=== PATIENT | female | born 1945 | race Caucasian/White ===

== ENCOUNTER → 2016-07-06 | Outpatient (CLI) | payer BC ==
[~2016-07-06] MED LIST: ALL180 PO; AMR2 PO; ARTIOIN OP; LYR50 PO; PLMIN200 INH; POTA10CA28 PO; SIMV20TA2 PO; SNQ50 PO; SYN50 PO
[2016-07-06 12:08] LABS: BASO ABS # 0.07 K/uL (0-0.2); COMPLETE YES; EOS % 2.8 %; HEMATOCRIT 40.9 % (37-47); IG% 0.1 %; LYMPH % 42.5 %; LYMPH ABS # 3.05 K/uL (1.2-3.4); MEAN CELL VOLUME 91.9 fL (80-100); MEAN CORPUSCULAR HEMOGLOBIN 31.5 pg (25-34); MEAN CORPUSCULAR HGB CONC 34.2 g/dl (32-36); MEAN PLATELET VOLUME 12.1 fL (7.4-10.4); MONO % 6.6 %; PLATELET COUNT 170 K/uL (130-400); RED BLOOD COUNT 4.45 M/uL (4.2-5.4); WHITE BLOOD COUNT 7.17 K/uL (4.8-10.8)
[2016-07-06 12:19] LABS: ALT/SGPT 38 U/L (12-78); AST/SGOT 18 U/L (15-37); BLOOD UREA NITROGEN 22 mg/dl (7-18); BUN/CREATININE RATIO 20.4 (10-20); CALCIUM 8.6 mg/dl (8.5-10.1); CARBON DIOXIDE 28 mmol/L (21-32); CHLORIDE 100 mmol/L (98-107); CHOLESTEROL 141 mg/dl (0-200); GLUCOSE 137 mg/dl (70-99); POTASSIUM 3.2 mmol/L (3.5-5.1); SODIUM 137 mmol/L (136-145); URIC ACID 3.9 mg/dl (2.6-7.2)
[2016-07-06 12:29] LABS: ALKALINE PHOSPHATASE 60 U/L (45-117); CHOLESTEROL/HDL RATIO 2.8; HDL CHOLESTEROL 50 mg/dl; LDL CHOLESTEROL CALCULATED 55 mg/dl; TRIGLYCERIDES 179 mg/dl (0-150); VERY LOW DENSITY LIPOPROT CALC 36 mg/dl
[2016-07-06 12:33] LABS: ESTIMATED AVERAGE GLUCOSE 157 mg/dl; HA1C FLAG Normal (Normal)
== END | disposition home or self-care (01) ==
LOC: C.LAB1850 10:16
PROVIDERS: ATTEND Internal Medicine Pulmonary Disease
DX: E11.9 Type 2 diabetes mellitus without complications (principal); M10.9 Gout, unspecified; E03.9 Hypothyroidism, unspecified; I10 Essential (primary) hypertension

== ENCOUNTER → 2016-07-09 | Outpatient (CLI) | payer BC ==
--- NOTE | 2016-07-09 16:38 | MAMMOGRAPHY REPORT ---
BILATERAL DIGITAL SCREENING MAMMOGRAM WITH CAD: 07/09/2016 CLINICAL HISTORY: Routine screening. Patient has no complaints. TECHNIQUE: Bilateral CC and MLO views were obtained. Current study was also evaluated with a Comput er Aided Detection (CAD) system. COMPARISON: Comparison is made to exams dated: 07/06/2015 mammogram, 06/29/2013 mammogram, 06/26/2012 m ammogram, 06/23/2010 mammogram, and 06/22/2009 mammogram - [facility]. BREAST COMPOSITION: The tissue of both breasts is almost entirely fatty. FINDINGS: There are a few stable benign-appearing calcifications in the breasts. No suspicious mass , architectural distortion or cluster of suspicious microcalcifications is seen. IMPRESSION: ACR BI-RADS CATEGORY 1: NEGATIVE There is no mammographic evidence of malignancy. A 1 year screening mammogram is recommended. The p atient will receive written notification of the results. Approximately 10% of breast cancers are not detected with mammography. A negative mammographic repor t should not delay biopsy if a clinically suggestive mass is present. Dia Azevedo M.D. ay/:07/09/2016 16:07:37 Licensed Practical Nurse Instructor: Cecy Hernandez [facility] letter sent: Normal 1/2 BI-RADS Code: ACR BI-RADS Category 1: Negative
== END | disposition home or self-care (01) ==
LOC: C.MAMM 13:51
PROVIDERS: ATTEND Internal Medicine Pulmonary Disease
DX: Z12.31 Encounter for screening mammogram for malignant neoplasm of breast (principal)

== ENCOUNTER → 2017-01-08 | Outpatient (CLI) | payer BC ==
[2017-01-08 10:48] LABS: ALT/SGPT 33 U/L (12-78); BLOOD UREA NITROGEN 22 mg/dl (7-18); BUN/CREATININE RATIO 19.6 (10-20); CALCIUM 9.5 mg/dl (8.5-10.1); CARBON DIOXIDE 26 mmol/L (21-32); CHLORIDE 100 mmol/L (98-107); CHOLESTEROL 157 mg/dl (0-200); GLUCOSE 116 mg/dl (70-99); POTASSIUM 3.3 mmol/L (3.5-5.1); SODIUM 136 mmol/L (136-145); URIC ACID 4.2 mg/dl (2.6-7.2)
[2017-01-08 10:51] LABS: ALKALINE PHOSPHATASE 67 U/L (45-117); AST/SGOT 19 U/L (15-37); CHOLESTEROL/HDL RATIO 3.2; HDL CHOLESTEROL 49 mg/dl; LDL CHOLESTEROL CALCULATED 63 mg/dl; TRIGLYCERIDES 225 mg/dl (0-150); VERY LOW DENSITY LIPOPROT CALC 45 mg/dl
[2017-01-08 12:16] LABS: ESTIMATED AVERAGE GLUCOSE 140 mg/dl; HA1C FLAG Normal (Normal)
== END | disposition home or self-care (01) ==
LOC: C.LAB1850 09:30
PROVIDERS: ATTEND Internal Medicine Pulmonary Disease
DX: J45.909 Unspecified asthma, uncomplicated (principal); E11.9 Type 2 diabetes mellitus without complications; E78.5 Hyperlipidemia, unspecified; E03.9 Hypothyroidism, unspecified; I10 Essential (primary) hypertension

== ENCOUNTER → 2017-07-08 | Outpatient (CLI) | payer BC ==
[2017-07-08 12:11] LABS: BASO % 0.5 %; BASO ABS # 0.04 K/uL (0-0.2); EOS % 3.4 %; EOS ABS # 0.26 K/uL (0-0.5); HEMATOCRIT 46.8 % (37-47); HEMOGLOBIN 15.6 g/dL (12.0-16.0); IG# 0.02 K/uL (0.00-0.02); LYMPH % 42.2 %; LYMPH ABS # 3.23 K/uL (1.2-3.4); MEAN CELL VOLUME 93.4 fL (80-100); MEAN CORPUSCULAR HEMOGLOBIN 31.1 pg (25-34); MEAN CORPUSCULAR HGB CONC 33.3 g/dl (32-36); MEAN PLATELET VOLUME 12.1 fL (7.4-10.4); MONO % 7.3 %; MONO ABS # 0.56 K/uL (0.11-0.59); NEUT % 46.3 %; NEUT ABS # 3.55 K/uL (1.4-6.5); PLATELET COUNT 168 K/uL (130-400); RED CELL DISTRIBUTION WIDTH CV 13.9 % (11.5-14.5); RED CELL DISTRIBUTION WIDTH SD 47.3 fL (36.4-46.3); WHITE BLOOD COUNT 7.66 K/uL (4.8-10.8)
[2017-07-08 12:58] LABS: HEMOGLOBIN A1C 6.8 % (4.5-5.6)
[2017-07-08 12:59] LABS: ALBUMIN 3.6 gm/dl (3.4-5.0); ALT/SGPT 36 U/L (12-78); BLOOD UREA NITROGEN 23 mg/dl (7-18); CALCIUM 9.1 mg/dl (8.5-10.1); CARBON DIOXIDE 26 mmol/L (21-32); CHOLESTEROL 160 mg/dl (0-200); CREATININE 1.09 mg/dl (0.60-1.20); GLUCOSE 106 mg/dl (70-99); POTASSIUM 3.3 mmol/L (3.5-5.1); SODIUM 135 mmol/L (136-145)
[2017-07-08 13:23] LABS: ALKALINE PHOSPHATASE 69 U/L (45-117); AST/SGOT 20 U/L (15-37); LDL CHOLESTEROL CALCULATED 63 mg/dl; TOTAL PROTEIN 7.4 gm/dl (6.4-8.2)
[2017-07-08 15:26] LABS: CREATININE RANDOM URINE 18.6 mg/dl
== END | disposition home or self-care (01) ==
LOC: C.LAB1850 10:14
PROVIDERS: ATTEND Internal Medicine Pulmonary Disease
DX: E11.9 Type 2 diabetes mellitus without complications (principal); E78.5 Hyperlipidemia, unspecified; E03.9 Hypothyroidism, unspecified; I10 Essential (primary) hypertension

== ENCOUNTER → 2017-07-11 | Outpatient (CLI) | payer BC ==
--- NOTE | 2017-07-15 12:41 | MAMMOGRAPHY REPORT ---
BILATERAL DIGITAL SCREENING MAMMOGRAM TOMOSYNTHESIS WITH CAD: 07/11/2017 CLINICAL HISTORY: Routine screening. Patient has no complaints. TECHNIQUE: Breast tomosynthesis in addition to standard 2D mammography was performed. Current study was also evaluated with a Computer Aided Detection (CAD) system. COMPARISON: Comparison is made to exams dated: 07/09/2016 mammogram, 07/06/2015 mammogram, 06/30/2014 m ammogram, 06/29/2013 mammogram, 06/26/2012 mammogram, and 06/25/2011 mammogram - [facility]. BREAST COMPOSITION: The tissue of both breasts is almost entirely fatty. FINDINGS: No suspicious masses, calcifications, or areas of architectural distortion are noted in ei ther breast. There has been no significant interval change compared to prior exams. IMPRESSION: ACR BI-RADS CATEGORY 1: NEGATIVE There is no mammographic evidence of malignancy. A 1 year screening mammogram is recommended. The pa tient will receive written notification of the results. Approximately 10% of breast cancers are not detected with mammography. A negative mammographic report should not delay biopsy if a clinically suggestive mass is present. Nellie Thakur M.D. /:07/11/2017 16:04:32 [employer] Assistant Teacher: Cecy CHIU(Endy)(M), [facility] letter sent: Normal 1/2 BI-RADS Code: ACR BI-RADS Category 1: Negative
== END | disposition home or self-care (01) ==
LOC: C.MAMM 13:14
PROVIDERS: ATTEND Internal Medicine Pulmonary Disease
DX: Z12.31 Encounter for screening mammogram for malignant neoplasm of breast (principal)

== ENCOUNTER 2023-11-04 08:22 | Observation (INO) ==
--- NOTE | 2023-09-19 11:29 | PAT Medication Instructions ---
Medication Instructions Date of Service September 19, 2023 Home Medications Medication Instructions Recorded metformin 500 mg tablet,extended 1,000 mg (2 x 500 mg) PO BID #360 06/12/22 release 24 hr tabs pen needle, diabetic 32 gauge x #100 ea 09/05/22" (Sure Comfort Pen Needle) simvastatin 20 mg tablet 20 mg PO HS #90 tabs 10/09/22 blood sugar diagnostic (OneTouch #300 ea 10/29/22 Ultra Test strips) canagliflozin 100 mg tablet 100 mg PO QAM #90 tabs 11/12/22 (Invokana) potassium chloride 10 mEq 10 meq PO BID #180 caps 11/12/22 capsule,extended release albuterol sulfate 90 mcg/actuation 2 puff inhalation QID PRN 01/11/23 aerosol inhaler (Ventolin HFA) Shortness Of Breath Or Wheezing #3 Inhalers insulin glargine 100 unit/mL (3 21 unit (0.21 mL) subcut HS #30 mL 01/22/23 mL) subcutaneous pen (Lantus Solostar U-100 Insulin) pregabalin 100 mg capsule 100 mg PO BID #180 caps 02/27/23 lancets 30 gauge #300 ea 03/20/23 doxepin 50 mg capsule 50 mg PO HS #90 caps 05/22/23 fexofenadine 180 mg tablet (Lorrie Allergy) 180 mg PO HS omega 1-zme-xqa-fish oil 1,000 mg (120 mg-180 mg) capsule (Fish Oil) 2,000 mg PO HS hydrocortisone 1 % topical cream (Anti-Itch (hydrocortisone)) 1 appln topical BID PRN Rash metronidazole 0.75 % topical cream 1 appln topical BID PRN ROSACEA cinnamon bark 500 mg capsule 1,000 mg PO BID metformin 500 mg tablet,extended release 24 hr 1,000 mg (2 x 500 mg) PO BID acetaminophen 650 mg tablet,extended release 650 mg PO UD PRN Pain budesonide 180 mcg/actuation breath activated powder inhaler (Pulmicort Flexhaler) 2 inh inhalation BID PRN Shortness Of Breath Or Wheezing clotrimazole-betamethasone 1 %-0.05 % topical cream 1 applic topical BID PRN Skin Irritation cyanocobalamin (vitamin B-12) 1,000 mcg tablet (Vitamin B-12) 1,000 mcg PO QAM bqvtneev-cofi-ixpc 8 mg-folic 400 mcg-K 50 mcg-lutein 300 mcg tablet (Centrum Silver Women) 1 tab PO QAM olopatadine 0.2 % eye drops 1 drp ophthalmic (eye) DAILY PRN Eye Irritation simvastatin 20 mg tablet 20 mg PO HS canagliflozin 100 mg tablet (Invokana) 100 mg PO QAM potassium chloride 10 mEq capsule,extended release 10 meq PO BID albuterol sulfate 90 mcg/actuation aerosol inhaler (Ventolin HFA) 2 puff inhalation QID PRN Shortness Of Breath Or Wheezing insulin glargine 100 unit/mL (3 mL) subcutaneous pen (Lantus Solostar U-100 Insulin) 21 unit (0.21 mL) subcut HS pregabalin 100 mg capsule 100 mg PO BID doxepin 50 mg capsule 50 mg PO HS allopurinol 300 mg tablet 300 mg PO QAM levothyroxine 88 mcg tablet 88 mcg PO QAM triamterene 75 mg-hydrochlorothiazide 50 mg tablet 1 tab PO QAM Continue as directed olopatadine 0.2 % eye drops 1 drp ophthalmic (eye) DAILY PRN Eye Irritation (if needed) STOP taking 2 weeks before surgery omega 7-szo-cdo-fish oil 1,000 mg (120 mg-180 mg) capsule (Fish Oil) 2,000 mg PO HS cinnamon bark 500 mg capsule 1,000 mg PO BID STOP taking 3 days before surgery canagliflozin 100 mg tablet (Invokana) 100 mg PO QAM STOP taking 24 hours before surgery hydrocortisone 1 % topical cream (Anti-Itch (hydrocortisone)) 1 appln topical BID PRN Rash metronidazole 0.75 % topical cream 1 appln topical BID PRN ROSACEA clotrimazole-betamethasone 1 %-0.05 % topical cream 1 applic topical BID PRN Skin Irritation DO NOT take the morning of surgery metformin 500 mg tablet,extended release 24 hr 1,000 mg (2 x 500 mg) PO BID cyanocobalamin (vitamin B-12) 1,000 mcg tablet (Vitamin B-12) 1,000 mcg PO QAM [id number] 8 mg-folic 400 mcg-K 50 mcg-lutein 300 mcg tablet (Centrum Silver Women) 1 tab PO QAM potassium chloride 10 mEq capsule,extended release 10 meq PO BID triamterene 75 mg-hydrochlorothiazide 50 mg tablet 1 tab PO QAM Take morning of surgery With a small sip of water, OTHERWISE NOTHING TO EAT OR DRINK AFTER MIDNIGHT: acetaminophen 650 mg tablet,extended release 650 mg PO UD PRN Pain (if needed) budesonide 180 mcg/actuation breath activated powder inhaler (Pulmicort Flexhaler) 2 inh inhalation BID PRN Shortness Of Breath Or Wheezing (if needed) albuterol sulfate 90 mcg/actuation aerosol inhaler (Ventolin HFA) 2 puff inhalation QID PRN Shortness Of Breath Or Wheezing (use if needed; please bring with you to hospital day of surgery if possible) pregabalin 100 mg capsule 100 mg PO BID allopurinol 300 mg tablet 300 mg PO QAM levothyroxine 88 mcg tablet 88 mcg PO QAM Take evening before surgery fexofenadine 180 mg tablet (Lorrie Allergy) 180 mg PO HS metformin 500 mg tablet,extended release 24 hr 1,000 mg (2 x 500 mg) PO BID acetaminophen 650 mg tablet,extended release 650 mg PO UD PRN Pain (if needed) budesonide 180 mcg/actuation breath activated powder inhaler (Pulmicort Flexhaler) 2 inh inhalation BID PRN Shortness Of Breath Or Wheezing (if needed) simvastatin 20 mg tablet 20 mg PO HS potassium chloride 10 mEq capsule,extended release 10 meq PO BID albuterol sulfate 90 mcg/actuation aerosol inhaler (Ventolin HFA) 2 puff inhalation QID PRN Shortness Of Breath Or Wheezing (if needed) insulin glargine 100 unit/mL (3 mL) subcutaneous pen (Lantus Solostar U-100 Insulin) 21 unit (0.21 mL) subcut HS pregabalin 100 mg capsule 100 mg PO BID doxepin 50 mg capsule 50 mg PO HS Other Notes If you have any questions please call us at [phone] or [phone] or [phone] or [phone]
--- NOTE | 2023-10-07 11:39 | Anesthesiology Consultation ---
Date of Service October 07, 2023 Assessment & Plan (1) Encounter for pre-operative examination: Chart Review Chart Review: Acceptable Risk for Surgery and Patient seen in Pre Admission Testing - Check BSG AM DOS - Patient is NOT an ideal OPJ candidate (currently 23 hour obs) Per PAT appt on 10/07/23, no recent illness/disease exposures, illness related symptoms, or recent illness/disease positive tests. Will leave to surgeon's discretion if preop Covid testing needed History Surgery Operation Date: 11/04/23 08:40 Proposed Procedures p Right Total Shoulder Arthroplasty [place] - Josse Dangelo, Height/Weight Height: 5 ft 1.25 in Weight: 94.7 kg Allergies Allergy/AdvReac Type Severity Reaction Status Date / Time NSAIDS (Non-Steroidal Allergy Severe Hives Verified 09/19/23 10:45 Anti-Inflamma brimonidine Allergy Intermediate RED ITCHY Verified 09/19/23 10:45 EYES CRUSTY EYES Penicillins Allergy Intermediate HIVES Verified 09/19/23 10:45 aspirin Allergy Unknown Hives Verified 10/07/23 11:46 doxycycline Allergy Unknown Not Verified 10/07/23 11:46 effective- caused increased redness to wound bacitracin Allergy Itching Verified 09/19/23 10:45 [From Neosporin ([id number])] neomycin Allergy Itching Verified 09/19/23 10:45 [From Neosporin ([id number])] nickel Allergy rash, Verified 09/19/23 10:45 itching polymyxin B Allergy Itching Verified 09/19/23 10:45 [From Neosporin ([id number])] Medications Home Medications Medication Instructions Recorded Confirmed Last Taken fexofenadine 180 mg tablet 180 mg PO HS 02/07/18 09/19/23 08/23/22 (Lorrie Allergy) omega 0-ctx-ses-fish oil 1,000 mg 2,000 mg PO HS 02/07/18 09/19/23 08/23/22 (120 mg-180 mg) capsule (Fish Oil) hydrocortisone 1 % topical cream 1 appln topical BID PRN Rash 02/25/19 09/19/23 Unknown (Anti-Itch (hydrocortisone)) metronidazole 0.75 % topical cream 1 appln topical BID PRN ROSACEA 02/25/19 09/19/23 02/05/21 cholecalciferol (vitamin D3) 50 50 mcg PO QAM 08/30/20 09/19/23 08/24/22 mcg (2,000 unit) capsule cinnamon bark 500 mg capsule 1,000 mg PO BID 02/05/21 09/19/23 08/24/22 12:00 metformin 500 mg tablet,extended 1,000 mg (2 x 500 mg) PO BID #360 06/12/22 09/19/23 08/24/22 12:00 release 24 hr tabs acetaminophen 650 mg 650 mg PO UD PRN Pain 08/24/22 09/19/23 Unknown tablet,extended release budesonide 180 mcg/actuation 2 inh inhalation BID PRN Shortness 08/24/22 09/19/23 Unknown breath activated powder inhaler Of Breath Or Wheezing (Pulmicort Flexhaler) clotrimazole-betamethasone 1 1 applic topical BID PRN Skin 08/24/22 09/19/23 Unknown %-0.05 % topical cream Irritation cyanocobalamin (vitamin B-12) 1,000 mcg PO QAM 08/24/22 09/19/23 08/24/22 1,000 mcg tablet (Vitamin B-12) fvzcziqr-uiqg-swwl 8 mg-folic 400 1 tab PO QAM 08/24/22 09/19/23 08/24/22 mcg-K 50 mcg-lutein 300 mcg tablet (Centrum Silver Women) olopatadine 0.2 % eye drops 1 drp ophthalmic (eye) DAILY PRN 08/24/22 09/19/23 08/24/22 Eye Irritation simvastatin 20 mg tablet 20 mg PO HS #90 tabs 10/09/22 09/19/23 Unknown blood sugar diagnostic (OneTouch #300 ea 10/29/22 08/08/23 Unknown Ultra Test strips) canagliflozin 100 mg tablet 100 mg PO QAM #90 tabs 11/12/22 09/19/23 Unknown (Invokana) potassium chloride 10 mEq 10 meq PO BID #180 caps 11/12/22 09/19/23 Unknown capsule,extended release albuterol sulfate 90 mcg/actuation 2 puff inhalation QID PRN 01/11/23 09/19/23 Unknown aerosol inhaler (Ventolin HFA) Shortness Of Breath Or Wheezing #3 Inhalers insulin glargine 100 unit/mL (3 unit (0.21 mL) subcut HS #30 mL 01/22/23 09/19/23 Unknown mL) subcutaneous pen (Lantus Solostar U-100 Insulin) lancets 30 gauge #300 ea 03/20/23 08/08/23 Unknown doxepin 50 mg capsule 50 mg PO HS #90 caps 05/22/23 09/19/23 Unknown allopurinol 300 mg tablet 300 mg PO QAM 09/19/23 09/19/23 Unknown levothyroxine 88 mcg tablet 88 mcg PO QAM 09/19/23 09/19/23 Unknown pen needle, diabetic 32 gauge x #100 ea 09/20/23 Unknown 32" (Sure Comfort Pen Needle) pregabalin 100 mg capsule 100 mg PO BID #200 caps 09/20/23 Unknown triamterene 75 1 tab PO QAM #100 tabs 09/20/23 Unknown mg-hydrochlorothiazide 50 mg tablet Past Medical History Medical History Asthma cough variant asthma; inh x2 prn-very rare use well controlled and stable Depression Diabetic peripheral neuropathy Dyslipidemia Glaucoma hx-no longer using drops, no mention of this recently Gout No recent issues H/O Mohs micrographic surgery for skin cancer Face Fausto's thyroiditis Hx of cancer of uterus 11/2000, s/p hysterectomy - no chemo or XRT Hx of gastroesophageal reflux (GERD) no current issues Hypertension Hypothyroidism Insomnia Low back pain with sciatica flares occasionally Nausea and vomiting after administration of anesthetic agent happened once after foot sx. Type 2 diabetes mellitus, controlled Exercise / Class Metabolic Activity III < 4 Walking/Shop/Light housework (no chest pain or SOB with flat surface ambulation ) Past Family History Family History Unknown Diabetes Allergic rhinitis Atherosclerosis Mother Cardiac disorder Father Stroke syndrome Daughter Environmental allergies Asthma Sinusitis Other No pertinent family history in first degree relatives Denies family history of Clotting disorder Past Surgical History Surgical History H/O elbow surgery History of ankle surgery History of cholecystectomy History of surgery on left wrist tendon repair History of total abdominal hysterectomy and bilateral salpingo-oophorectomy Hx of bilateral cataract extraction Hx of colonoscopy Status post osteotomy History of Osteotomy Of The Calcaneus Past Anesthesia History No Hx of Anesthesia Complications (with remote history of PONV ) and No Family Hx of Anesthesia Complications (with exception to sister- slow to wake - just gr oggy - no reintubation or ICU stay ) History of PONV No Hx of Motion Sickness and History of PONV (remote history with ankle surgery ) Social History Smoking Status: Never smoker Do You Dip or Chew Tobacco: No Hx Alcohol Use: Yes alcohol intake frequency: holidays/special occasions only Hx Substance Use: No substance use type: does not use Review of Systems - Chronic cough- stable x years Patient denies chest pain, shortness of breath, dyspnea on exertion, wheezing, palpitations. No hx of seizures, stroke, CA, apnea/snoring. No hx of blood clots or blood martinez sfusions Physical Exam Vital Signs VITALS BP 121/78 P 63 TEMP 97.5 SP02 95% RESP 16 Constitutional no acute distress ENMT Mouth: no TMJ clicking Thyromental Distance: > or= 3.5 Finger Breadths (3.5) Mallampati Class: III (smaller mouth) Crowns to side teeth and molars Top left front tooth partial (removable) Neck + short neck and + limited neck extension Respiratory normal respiratory effort; no respiratory distress Auscultation: lungs clear to auscultation bilaterally; no wheezes Cardiovascular Rate/Rhythm: regular rate and regular rhythm Heart Sounds: no murmur Vessels: no carotid bruit Musculoskeletal Spine: + pain with cervical ROM (if neck extended for long period of time ) Extremities: extremities normal to inspection Psychiatric Orientation: alert Lab Results Anesthesia Preop Results Results Anesthesia Widget: WBC 6.29 K/ul (4.8-10.8) 10/07/23 Hgb 14.1 g/dl (12.0-16.0) 10/07/23 Hct 41.9 % (37.0-47.0) 10/07/23 Plt 153 K/uL (130-400) 10/07/23 Na 138 mmol/L (136-145) 10/07/23 K 3.3 mmol/L (3.5-5.1) L 10/07/23 Cl 104 mmol/L (98-107) 10/07/23 CO2 26 mmol/L (21-32) 10/07/23 BUN 26 mg/dl (6-23) H 10/07/23 Creat 0.93 mg/dl (0.6-1.2) 10/07/23 Glucose Level 125 mg/dl (70-99(Fasting)) H 10/07/23 PT 11.1 Seconds (9.0-12.0) 10/07/23 PTT 27 Seconds (21-31) 10/07/23 INR 1.0 (0.9-1.1) 10/07/23 HA1c 7.1 % (4.5-5.6) H 10/07/23 Blood Type A Positive 10/07/23 Antibody Screen NEGATIVE 10/07/23 Testing Electrocardiogram Date: 10/07/23 SR with 1st degree AVB at 60bpm Right superior axis deviation Cannot rule out anterior infarct (cited on or before November 12, 2000) When compared to EKG from Feb 07, 2018- QRS axis shifted left per cardio Chest X-Ray Date: 05/22/23 FINDINGS: No pneumothorax. No pleural effusions. The cardiac silhouette remains top normal in size. No new focal lung consolidations to suggest a pneumonia. No evidence for pulmonary edema. No acute fractures identified. Prior cholecystectomy. A few small linear densities within the right middle lobe and lingula favor subsegmental atelectasis or scarring. This is similar to the prior study. IMPRESSION: No significant change compared to the prior study. No acute process.
--- NOTE | 2023-10-30 12:52 | History & Physical Report ---
Date of Service October 30, 2023 Assessment & Plan (1) Rotator cuff arthropathy of right shoulder: We will proceed with a right reverse shoulder arthroplasty. Postoperatively she will be placed in a sling and kept overnight in the hospital for postop medical management. She plans to use energy physical therapy upon discharge. History of Present Illness Chief Complaint: Cuff tear arthropathy of the right shoulder. Primary Care Provider: Prakash Evans MD Jade is a pleasant 77-year-old female who has been dealing with chronic increasing right shoulder pain and weakness. X-rays, MRI, and clinical examination were diagnostic for cuff tear arthropathy of the right shoulder. After failing conservative treatment, she has elected proceed with a right reve rse shoulder arthroplasty.. Allergies Allergy/AdvReac Type Severity Reaction Status Date / Time NSAIDS (Non-Steroidal Allergy Severe Hives Verified 09/19/23 10:45 Anti-Inflamma brimonidine Allergy Intermediate RED ITCHY Verified 09/19/23 10:45 EYES CRUSTY EYES Penicillins Allergy Intermediate HIVES Verified 09/19/23 10:45 aspirin Allergy Unknown Hives Verified 10/07/23 11:46 doxycycline Allergy Unknown Presumed Verified 10/11/23 13:45 allergy per patient bacitracin Allergy Itching Verified 09/19/23 10:45 [From Neosporin ([id number])] neomycin Allergy Itching Verified 09/19/23 10:45 [From Neosporin ([id number])] nickel Allergy rash, Verified 09/19/23 10:45 itching polymyxin B Allergy Itching Verified 09/19/23 10:45 [From Neosporin ([id number])] Home Medications Medication Instructions Recorded Confirmed Type fexofenadine 180 mg tablet 180 mg PO HS 02/07/18 09/19/23 History (Lorrie Allergy) omega 0-yoo-lwo-fish oil 1,000 mg 2,000 mg PO HS 02/07/18 09/19/23 History (120 mg-180 mg) capsule (Fish Oil) hydrocortisone 1 % topical cream 1 appln topical BID PRN Rash 02/25/19 09/19/23 History (Anti-Itch (hydrocortisone)) metronidazole 0.75 % topical cream 1 appln topical BID PRN ROSACEA 02/25/19 09/19/23 History cholecalciferol (vitamin D3) 50 50 mcg PO QAM 08/30/20 09/19/23 History mcg (2,000 unit) capsule cinnamon bark 500 mg capsule 1,000 mg PO BID 02/05/21 09/19/23 History metformin 500 mg tablet,extended 1,000 mg (2 x 500 mg) PO BID #360 06/12/22 09/19/23 Rx release 24 hr tabs acetaminophen 650 mg 650 mg PO UD PRN Pain 08/24/22 09/19/23 History tablet,extended release budesonide 180 mcg/actuation 2 inh inhalation BID PRN Shortness 08/24/22 09/19/23 History breath activated powder inhaler Of Breath Or Wheezing (Pulmicort Flexhaler) clotrimazole-betamethasone 1 1 applic topical BID PRN Skin 08/24/22 09/19/23 History %-0.05 % topical cream Irritation cyanocobalamin (vitamin B-12) 1,000 mcg PO QAM 08/24/22 09/19/23 History 1,000 mcg tablet (Vitamin B-12) lyuykwge-rycz-[id number] 8 mg-folic 400 1 tab PO QAM 08/24/22 09/19/23 History mcg-K 50 mcg-lutein 300 mcg tablet (Centrum Silver Women) olopatadine 0.2 % eye drops 1 drp ophthalmic (eye) DAILY PRN 08/24/22 09/19/23 History Eye Irritation blood sugar diagnostic (OneTouch #300 ea 10/29/22 08/08/23 Rx Ultra Test strips) canagliflozin 100 mg tablet 100 mg PO QAM #90 tabs 11/12/22 09/19/23 Rx (Invokana) potassium chloride 10 mEq 10 meq PO BID #180 caps 11/12/22 09/19/23 Rx capsule,extended release albuterol sulfate 90 mcg/actuation 2 puff inhalation QID PRN 01/11/23 09/19/23 Rx aerosol inhaler (Ventolin HFA) Shortness Of Breath Or Wheezing #3 Inhalers lancets 30 gauge #300 ea 03/20/23 08/08/23 Rx doxepin 50 mg capsule 50 mg PO HS #90 caps 05/22/23 09/19/23 Rx allopurinol 300 mg tablet 300 mg PO QAM 09/19/23 09/19/23 History levothyroxine 88 mcg tablet 88 mcg PO QAM 09/19/23 09/19/23 History pen needle, diabetic 32 gauge x #100 ea 09/20/23 Rx 32" (Sure Comfort Pen Needle) pregabalin 100 mg capsule 100 mg PO BID #200 caps 09/20/23 Rx triamterene 75 1 tab PO QAM #100 tabs 09/20/23 Rx mg-hydrochlorothiazide 50 mg tablet insulin glargine 100 unit/mL (3 18 unit subcut HS 10/11/23 10/11/23 History mL) subcutaneous pen (Lantus Solostar U-100 Insulin) simvastatin 20 mg tablet 20 mg PO HS #90 tabs 10/18/23 Rx Past Med/Surg History Problem List Encounter for pre-operative examination Rotator cuff arthropathy of right shoulder Rotator cuff tear, right Right shoulder pain Cough Chronic - stable Obesity Osteoarthritis of right hand Asthma Depression Diabetic peripheral neuropathy associated with type 2 diabetes mellitus Dysesthesia Dyslipidemia Esophageal reflux Glaucoma Fausto's thyroiditis Hypertension Hypothyroidism Insomnia Type 2 diabetes mellitus, with long-term current use of insulin Vitamin D deficiency Medical History Nausea and vomiting after administration of anesthetic agent happened once after foot sx. Hx of cancer of uterus 11/2000, s/p hysterectomy - no chemo or XRT Type 2 diabetes mellitus, controlled Insomnia Hypothyroidism Hypertension Fausto's thyroiditis Hx of gastroesophageal reflux (GERD) no current issues Glaucoma hx-no longer using drops, no mention of this recently Gout No recent issues Dyslipidemia Diabetic peripheral neuropathy Depression Asthma cough variant asthma; inh x2 prn-very rare use well controlled and stable H/O Mohs micrographic surgery for skin cancer Face Low back pain with sciatica flares occasionally Surgical History History of surgery on left wrist tendon repair Hx of colonoscopy Hx of bilateral cataract extraction Status post osteotomy History of Osteotomy Of The Calcaneus H/O elbow surgery History of ankle surgery History of total abdominal hysterectomy and bilateral salpingo-oophorectomy History of cholecystectomy Family History Unknown Diabetes Allergic rhinitis Atherosclerosis Mother Cardiac disorder Clotting disorder Father Stroke syndrome Daughter Environmental allergies Asthma Sinusitis Sister Clotting disorder Other No pertinent family history in first degree relatives Social History Smoking Status: Never smoker Second Hand Exposure: Yes (hx growing up); Do You Dip or Chew Tobacco: No; Hx Alcohol Use: Yes Hx Substance Use: No Preferred Language: Gambian Communication Ability: Effective Correctional Sergeant Required: No Beliefs That Will Affect Care: None marital status: Current Living Situation: Spouse and Family current occupational status: retired Feels Safe at Home: Yes Assistive Devices: Denture - Upper and Glasses Review of Systems All systems reviewed & are unremarkable except as noted in HPI & below. Physical Exam On physical examination of right shoulder, she is 80 degrees forward elevation 80 degrees of abduction. She has 3 out of 5 motion at the full can test and external rotation.. Constitutional WD/WN, vitals as above Eyes PERRL, conjunctivae normal, anicteric sclerae ENMT external ear and nose normal, oropharynx normal Neck trachea midline, no thyromegaly Respiratory normal respiratory effort Cardiovascular RRR, no murmur, no edema Gastrointestinal (Abdomen) normal bowel sounds, soft, nontender, no hepatosplenomegaly Psychiatric A+Ox3, euthymic affect Results & Data Results & Data Laboratory Results . Diagnostic Findings X-rays and MRI of the left shoulder are consistent with cuff tear arthropathy with superior migration of the humeral head and the glenoid and a chronic retracted rotator cuff tear.. PG Care Time/CCT Total # of Minutes Spent Total Time Spent with Patient: Total time spent is greater than 50% in coordination of care (as documented) at patient's floor/unit and/or counseling patient: Coding Level of Care Code None Diagnoses Rotator cuff arthropathy of right shoulder M12.811
--- NOTE | 2023-11-04 08:00 | History & Physical Bridge Note ---
Date of Service November 04, 2023 History & Physical Bridge Note I have examined the patient, reviewed the History & Physical and in the interval since the performance of the History & Physical I have noted the following changes of clinical significance: no changes noted
[~2023-11-04 08:22] MED LIST changes: -ALL180 PO; -AMR2 PO; -ARTIOIN OP; +BUPIVACAINE 0.5 % 5 MG/1 ML PF 10ML VIAL ONE; -LYR50 PO; -PLMIN200 INH; -POTA10CA28 PO; -SIMV20TA2 PO; -SNQ50 PO; -SYN50 PO
[2023-11-04] MEDS ORDERED: fentaNYL citrate PF 100 MCG/2 ML VIAL ONE (09:00)
[2023-11-04] MEDS ORDERED: MIDAZOLAM HCL 1 MG/ML 2ML VIAL ONE (09:00)
[2023-11-04] MEDS: ACETAMINOPHEN 500 MG TAB PO SCH ×2 (09:05→14:17)
[2023-11-04] MEDS: GABAPENTIN 300 MG CAP PO SCH (09:05)
[2023-11-04] MEDS: FAMOTIDINE 20 MG TAB PO SCH (09:05)
[2023-11-04] MEDS: LR 60ML/HR IV SCH (09:06)
[2023-11-04] MEDS: LR 15ML/HR IV SCH (09:06)
[2023-11-04] MEDS: dexAMETHasone**PF** 10 MG/ML VIAL IV SCH (09:08)
[2023-11-04] MEDS ORDERED: ONDANSETRON INJ 2 MG/ML 2 ML VIAL IV PRN ×2 (09:18→13:32)
[2023-11-04] MEDS ORDERED: ATROPINE SULFATE 0.1 MG/ML 10ML SYR IV PRN (09:18)
[2023-11-04] MEDS ORDERED: ePHEDrine sulfate 50 MG/ML AMP IV PRN (09:18)
[2023-11-04] MEDS: TRANEXAMIC ACID 1,000 MG **IV Pre-op IV SCH (10:09)
[2023-11-04] MEDS: ceFAZolin 2000MG 2,000 MG/15 ML SYR IV SCH ×2 (10:24→18:07)
[2023-11-04] MEDS ORDERED: ONDANSETRON INJ 2 MG/ML 2 ML VIAL ONE (10:37)
[2023-11-04] MEDS ORDERED: PROPOFOL IV EMULSION 10 MG/ML 20 ML VIAL IV ONE (10:37)
[2023-11-04] MEDS ORDERED: LIDOCAINE 2% 2 ML VIAL/AMP(20MG/ML) INFIL ONE (10:37)
[2023-11-04] MEDS: ROPIV 0.5% 246mg, Ketorolac 30mg, EPINEPHrine 0.5mg in NSS INFIL SCH (11:00)
[2023-11-04] MEDS: ORTHO JOINT ANESTHETIC ONE (11:00)
[2023-11-04] MEDS: TRANEXAMIC ACID 1,000 MG **IV Intra-op IV SCH (11:27)
--- NOTE | 2023-11-04 11:31 | Operative Report ---
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 long head of biceps tendon Post-Op Diagnosis: Cuff tear arthropathy of the right shoulder with tendinopathy long head of the biceps tendon I identified the patient and participated in the time-out.: Yes Procedure Operation Date: 11/04/23 10:20 Actual Procedures p Right Reverse Total Shoulder Arthroplasty(Right) with open biceps tenodesis as a distinct and separate procedure (modifier 59)- Josse Dangelo DO Surgeon Josse Dangelo DO Chainstitch Elastic Attacher Josse Burleson PA-C Estimated Blood Loss 150 Findings Consistent with Post-Op Diagnosis Specimens Right humeral head Description of Procedure A CPT code modifier 59: The long head of the biceps tendon was enlarged and inflamed consistent with tendinopathy. A tenodesis was opted. This was a separate and distinct portion of the procedure. For these reasons, a CPT code modifier 59 will be added to this case. Implants used: I used a Biomet Comprehensive reverse total shoulder arthroplasty system with a size 10 press fit micro humeral stem, a +6 offset humeral tray and a standard humeral bearing, a 25 mm small augment baseplate with a 6.5 mm central screw and 4 peripheral locking screws, and a size 36 mm eccentric glenosphere. Marilee arrived at [facility] for the above procedure. She was seen in the preoperative holding area and the operative extremity was identified and signed. She was given a preoperative antibiotic, TXA, and an interscalene nerve block. She was taken back to the operating room, laid on table in supine position, and put under general anesthesia. She was then put into the beachchair position. The shoulder was then prepped and draped in sterile fashion. A timeout was done and the patient and the operative extremity was properly identified. A deltopectoral approach was used. Dissection was taken down through the fascia and the deltoid was retracted laterally and the conjoined tendon was retracted medially. The anterior shoulder was exposed. The biceps groove was opened up and the biceps tendon was examined extensively. The biceps tendon demonstrated enlargement and inflammatory changes consistent with longstanding inflammation in the context of osteoarthritis and cuff arthropathy. The long head of the biceps tendon was then tenodesed to the upper border of the pectoralis major. This was a separate and distinct portion of the procedure. The subscapularis was then directly released off the lesser tuberosity with a peel technique. The inferior capsule was released and the humeral head was dislocated. A canal finding reamer was sent down the center of the humeral canal. Sequential reaming up to a size 10 reamer was done. Off that reamer, a proximal humeral resection guide was placed. The proximal humerus was resected at 135 of inclination and 25 of retroversion. Osteophytes were then removed and the glenoid was exposed. Time was spent doing a complete capsular and labral release. The glenoid guide was then placed in the inferior aspect of the glenoid. A 3.2 mm Steinmann pin was then placed into the glenoid vault at 10 of inclination. The glenoid baseplate was then reamed. The final size 25 mm small augment baseplate was then impacted in the place. A 6.5 mm central screw was then placed followed by 4 peripheral locking screws. A 36 mm eccentric glenosphere was then impacted into place. Surrounding soft tissues were then injected with 100 cc an orthopedic pain control cocktail. The proximal humerus was then exposed. Sequential broaching of the humerus up to a size 10 broach was done. Off that broach a +6 offset humeral tray was trialed. The shoulder was then reduced, brought through a full range of motion, and felt to be stable. The shoulder was then dislocated and the broach was removed. The final size 10 micro press-fit humeral stem was then impacted into place. A standard humeral bearing was then snapped onto a +6 offset humeral tray. The humeral tray was then impacted onto the humeral stem. The shoulder was once again reduced, brought through a full range of motion, and felt to be stable. The subscapularis was retracted and poor quality. The subscapularis was unable to be repaired. A dilute betadyne lavage was then done for 3 minutes. The joint was then irrigated with normal saline solution. Hemostasis was obtained. The interval was closed with 2-0 Vicryl suture. The skin was then closed with 2-0 Vicryl and haritha. A Silverlon dressing was placed and the arm was rested in a regular arm sling. She was then extubated and transferred to a hospital bed. She taken to the postanesthesia care unit in stable condition. She tolerated the procedure well. Josse Burleson PA-C, was present for the entire procedure. He was critical for patient positioning, prepping, draping, retraction exposure, wound closure and application of sterile dressing. I attest to the content of the Intraoperative Record and any orders documented therein. Any exceptions are noted below.
[2023-11-04] MEDS: fentaNYL citrate PF 100 MCG/2 ML VIAL IV PRN (12:10)
--- NOTE | 2023-11-04 12:57 | XRay Report ---
XR shoulder RT min 2V routine CLINICAL HISTORY: Post shoulder surgery COMPARISON: Right shoulder radiographs August 28, 2023. MRI of the right shoulder August 20, 2023. FINDINGS: Alignment of the reverse total right shoulder arthroplasty is anatomic. There is no peripr osthetic fracture or unexpected radiopaque foreign body. There are skin haritha. IMPRESSION: Expected findings following reverse total right shoulder arthroplasty. ACT 112: Negative or not required by law. Electronically signed by: James Staples M.D. 11/04/2023 12:56 PM
--- NOTE | 2023-11-04 13:25 | Anesthesiology Progress Note ---
Date of Service November 04, 2023 Anesthesia Post Procedure Vital Signs Vital Signs: Temp Pulse Pulse Resp BP Pulse Ox O2 Del Method 11/04/23 12:55 78 18 119/60 93 Room Air 11/04/23 12:45 80 16 119/63 93 Room Air 11/04/23 12:30 80 16 125/65 95 Room Air 11/04/23 12:15 36.4 C L 78 20 129/67 94 Room Air 11/04/23 12:05 81 21 134/70 98 Oxymask 11/04/23 11:55 85 18 131/60 99 Oxymask 11/04/23 11:49 36.7 C 84 16 138/67 96 Oxymask 11/04/23 08:56 36.6 C 77 18 192/98 H 96 Room Air O2 Flow Rate 11/04/23 12:55 11/04/23 12:45 11/04/23 12:30 11/04/23 12:15 11/04/23 12:05 4 11/04/23 11:55 12 11/04/23 11:49 12 11/04/23 08:56 Pain Intensity Right Shoulder: Pain Intensity: 5 Transfer of Care Handoff Completed per policy Notes Mental Status: alert / awake / arousable and participated in evaluation Nausea / Vomiting: adequately controlled Pain: adequately controlled Airway Patency, RR, SpO2: stable & adequate BP & HR: stable & adequate Hydration State: stable & adequate Anesthetic Complications: no major complications apparent and Pt Satisfied with anesthetic care
[2023-11-04] MEDS ORDERED: CLOTRIMAZOLE/BETAMETHASONE CR 15 GM TUBE EXT PRN (13:32)
[2023-11-04] MEDS ORDERED: METOCLOPRAMIDE HCL INJ 5 MG/ML 2 ML VIAL IV PRN (13:32)
[2023-11-04] MEDS ORDERED: ALBUTEROL HFA 8 GM INHALER INH PRN (13:32)
[2023-11-04] MEDS ORDERED: oxyCODONE HCL IR 5 MG TAB (IMMEDIATE RELEASE) PO PRN (13:32)
[2023-11-04] MEDS ORDERED: MAGNESIUM HYDROXIDE SUSP 30 ML UDC PO PRN (13:32)
[2023-11-04] MEDS ORDERED: bisacodyL 10 MG SUPP PR PRN (13:32)
[2023-11-04] MEDS ORDERED: HYDROmorphone INJ 0.5 MG/0.5 ML SYR IV PRN (13:32)
[2023-11-04] MEDS ORDERED: PHARMACY GLYCEMIC MGMT CONSULT PRN (13:32)
[2023-11-04] MEDS ORDERED: NALOXONE HCL 0.4 MG/1 ML VIAL/CARP IV PRN (13:32)
[2023-11-04] MEDS ORDERED: HYDROCORTISONE 1% CRM 30 GM TUBE EXT PRN (14:01)
[2023-11-04] MEDS ORDERED: GLUCOSE 10 TAB/TUBE PO PRN (14:45)
[2023-11-04] MEDS ORDERED: GLUCOSE 40% GEL 15 GM TUBE PO PRN (14:45)
[2023-11-04] MEDS ORDERED: GLUCAGON FOR INJ 1 MG VIAL IM PRN (14:45)
[2023-11-04] MEDS ORDERED: CARBOHYDRATES FOR HYPOGLYCEMIA PO PRN (14:45)
[2023-11-04] MEDS ORDERED: DEXTROSE 50% 50 ML SYRINGE IV PRN (14:45)
--- NOTE | 2023-11-04 15:08 | Pharmacy Report ---
Pharmacy Glycemic Short Note 2 - Date of Service November 04, 2023 - Glycemic Short BSG Results (Last 24 hours): 11/04/23 11/04/23 11/04/23 08:51 11:53 14:07 POC Glucose 149 H 171 H 176 H OUTPATIENT ANTIDIABETIC REGIMEN: * Lantus 18 units SQ qHS * Metformin 1gm PO BID * Canagliflozin 100mg PO qAM * HbA1c: 7.1% (10/07/23) ASSESSMENT: * Ms Fleming is a 77yo diabetic F, POD 0 s/p R total shoulder this morning with Dr Dangelo. * Pt received 10mg IV dexamethasone pre-op, which is likely to cause steroid- induced hyperglycemia. * SQ basal/bolus insulin regimen initiated on admission. * Pharmacy will continue to follow and adjust regimen as indicated. PLAN FOR INPATIENT GLYCEMIC CONTROL: * Hold outpatient oral diabetes medications * Basal insulin * Lantus 18 units SQ qPM * Bolus insulin * NovoLog per scale ACHS or Q6hrs while NPO * Goal Range: Low 110 mg/dL - High 140 mg/dL * Correction Factor: 30 mg/dL/unit * Nutritional / Prandial insulin per carb ratio of 1 unit per 9 grams CHO consumed
[2023-11-04] MEDS: INSULIN ASPART PER UNIT CHARGE SC SCH (17:05)
[2023-11-04] MEDS: LANTUS PER UNIT CHARGE SC SCH (17:06)
[2023-11-04] MEDS: SODIUM CHLORIDE 0.9% 1,000 ML IV SCH (17:09)
[2023-11-04] MEDS: SIMVASTATIN 20 MG TAB PO SCH (20:10)
[2023-11-04] MEDS: PREGABALIN 100 MG CAP PO SCH (20:10)
[2023-11-04] MEDS: SENNA 8.6 MG TAB PO SCH (20:10)
[2023-11-04] MEDS: DOCUSATE SODIUM 100 MG CAP PO SCH (20:10)
[2023-11-04] MEDS: FEXOFENADINE HCL 180 MG TAB PO SCH (20:11)
[2023-11-04] MEDS: DOXEPIN HCL 50 MG CAPSULE PO SCH (20:12)
[2023-11-04] MEDS: POTASSIUM CHLORIDE 10 MEQ TABCR PO SCH (20:12)
[2023-11-05] MEDS: INSULIN ASPART PER UNIT CHARGE SC SCH (01:17)
[2023-11-05] MEDS: LEVOTHYROXINE SODIUM 88 MCG TABLET PO SCH (05:20)
--- NOTE | 2023-11-05 06:55 | Orthopedic Progress Note ---
Date of Service November 05, 2023 Assessment & Plan (1) Status post reverse total replacement of right shoulder: Overall she is doing very well. She is not having much pain in the right shoulder. She will be seen by physical therapy today for ambulation and range of motion exercises. She can be discharged home later today. She will follow- up orthopedics in 2 weeks. Seven Hunt was seen and examined at bedside this morning. Overall she is doing fairly well. She is not having much pain in the right shoulder. She has been up and ambulating to the bathroom. She has no complaints.. Review of Systems All systems reviewed & are unremarkable except as noted in HPI & below. Physical Exam On physical examination of the right shoulder, the dressing is clean and dry. She has motion of her hand and her wrist. She is wearing the sling as instructed.. Results & Data Results & Data Laboratory Results . Diagnostic Findings Postoperative x-rays of the right shoulder show the prosthesis to be in anatomic alignment without any evidence of fracture complication, or loosening.. PG Care Time/CCT Total # of Minutes Spent Total Time Spent with Patient: Total time spent is greater than 50% in coordination of care (as documented) at patient's floor/unit and/or counseling patient: Coding Level of Care Code 29449 Post Operative Follow-Up Diagnoses Status post reverse total replacement of right shoulder Z96.611
--- NOTE | 2023-11-05 06:56 | Discharge Summary ---
Date of Service November 05, 2023 Admission HPI (Per Admitting) Jade is a pleasant 77-year-old female who has been dealing with chronic increasing right shoulder pain and weakness. X-rays, MRI, and clinical examination were diagnostic for cuff tear arthropathy of the right shoulder. After failing conservative treatment, she has elected proceed with a right reverse shoulder arthroplasty.. Admission Exam (Per Admitting) On physical examination of right shoulder, she is 80 degrees forward elevation 80 degrees of abduction. She has 3 out of 5 motion at the full can test and external rotation.. Principal Diagnosis Same as "Discharge Diagnosis" noted below under Discharge Instructions. Discharge Exam On physical examination of the right shoulder, the dressing is clean and dry. She has motion of her hand and her wrist. She is wearing the sling as instructed.. Discharge Data Procedures Performed Operation Date: 11/04/23 10:20 Actual Procedures p Right Reverse Total Shoulder Arthroplasty(Right) - Josse Dangelo DO Ordered Studies 11/04/23 05:00 US - OR guided needle placemen Routine Hospital Course (1) Status post reverse total replacement of right shoulder: On November 04, 2023 Marilee arrived at [facility] and underwent a right reverse shoulder replacement without complication. She had a general anesthetic and a right interscalene nerve block. Postoperatively she was placed in a sling and transferred to the general orthopedic floors. Her hospital course was uneventful. On postop day #1, her vital signs were stable and her pain was well-controlled. She was able to participate well with physical therapy doing ambulation and range of motion exercises. She was then discharged home. She will follow-up with orthopedics in 2 weeks. PG Care Time/CCT Total # of Minutes Spent Total Time Spent with Patient: Total time spent is greater than 50% in coordination of care (as documented) at patient's floor/unit and/or counseling patient: Discharge Plan Discharge Items Patient Disposition: Home - Self-Care Reason For Visit: Right Shoulder Degenerative Joint Disease Discharge Diagnosis: Right reverse shoulder replacement Activity: Per Instructions section Non-emergency contact: Surgeon Call non-emergency contact if: your wound has increased redness and your wound has increased drainage Follow-up/Referrals: Prakash Evans MD [Primary Care Provider] - Diet: Regular Addtl Attending Provider Instructions: Activity and Therapy Recommendations: * If you are using [facility] then therapy will be provided at your home until they feel you have accomplished all of your goals. * If you are using [facility] then Physical Therapy will be provided until they feel you are ready to start Outpatient Physical Therapy. * If you are not using home therapy then Outpatient Physical Therapy should start about 3-5 days from your day of surgery. Therapy will last about 8-12 weeks * Wear your sling for 3 weeks, unless otherwise instructed. You may remove your sling to shower and to dress, but otherwise, you should be in your sling at all times, including while sleeping * The shoulder replacement is very stable and you can use your hand while in the sling * You were shown a series of exercises in the hospital. Do these exercises daily including the exercises you were shown in physical therapy. Medications: * Narcotic You will likely be sent home from the hospital with a prescription for the narcotic pain medication that worked best throughout your stay. * Cefadroxil -take the antibiotic twice a day for 10 days to help prevent infection. * Other medications may be prescribed for specific circumstances. If you have any questions, please call the office at . * Resume previous home medications unless otherwise instructed Dressing Care: Leave the Silverlon dressing in place for 7 days. After 7 days you may remove the dressing. If the incision is not draining then you may leave the haritha open to air. If there is a little bit of drainage or if the haritha are getting stuck on your clothing then cover the incision with a dry dressing. The haritha will be removed at your 2 week follow-up appointment. Showering: You may shower with the Silverlon dressing in place. Do not let the shower spray hit the dressing directly. Pat the Silverlon dressing dry. If the dressing becomes wet underneath, then simply remove the dressing. Keep the incision dry until you are 7 days out from the day of surgery. After 7 days you may remove the Silverlon dressing and shower with the haritha exposed. Let soapy water run over the haritha and pat them dry. Do not scrub or soak the incision. Things To Watch For: * Drainage from the incision site that occurs more than one week after your surgery. * Increased redness at the incision site. * Fever above 102 degrees Fahrenheit. * Unusual chest pain or shortness of breath. * Call [facility] at with any of the above problems Follow-Up Visit: Follow-up with Dr. Dangelo's PA (Josse Burleson) 2-3 weeks after your day of surgery. He will remove your haritha and answer any questions. If you have any additional questions or concerns, Dr Dangelo is usually in the office at the same time and will be available An appointment was probably scheduled when you signed-up for surgery in the office. If you have any questions call More detailed instructions as well as Frequently Asked Questions were provided in a folder by our office when you signed-up for surgery. Please review these instructions when you get home. If you have any further questions or concerns, please feel free to call the office at [phone] Pending Studies at Discharge: No Stand-Alone Forms: My [facility] Medications and DC Order Prescriptions: New oxycodone 5 mg Tablet 5 mg PO Q4H PRN (Reason: pain) Qty: 30 0RF cefadroxil 500 mg capsule 500 mg PO BID 10 Days Qty: 20 0RF Continued metformin 500 mg tablet extended release 24 hr 1,000 mg PO BID Qty: 360 5RF Rx Instructions: Take with food. TAKES WITH LUNCH & DINNER (DME) OneTouch Ultra Test Strip See Rx Instructions .Route Qty: 300 3RF Rx Instructions: test 3 times daily albuterol sulfate [Ventolin HFA] 90 mcg/actuation HFA aerosol inhaler 2 puff INHALATION QID PRN (Reason: Shortness Of Breath Or Wheezing) Qty: 3 3RF (DME) lancets 30 gauge misc See Rx Instructions .ROUTE .MEDSUPPLY Qty: 300 3RF Rx Instructions: Use to test blood sugar 2-3 times a day (DME) pen needle, diabetic [Sure Comfort Pen Needle] 32 gauge x 5/32" needle See Rx Instructions .Route Qty: 100 3RF Rx Instructions: use 1 QD pregabalin 100 mg capsule 100 mg PO BID Qty: 200 3RF triamterene-hydrochlorothiazid 75-50 mg tablet 1 tab PO QAM Qty: 100 3RF simvastatin 20 mg tablet 20 mg PO HS Qty: 90 3RF metronidazole 0.75 % cream 1 appln TOP BID PRN (Reason: ROSACEA) hydrocortisone [Anti-Itch (HC)] 1 % cream 1 appln TOP BID PRN (Reason: Rash) doxepin 50 mg capsule 50 mg PO HS Qty: 90 3RF cholecalciferol (vitamin D3) 50 mcg (2,000 unit) capsule 50 mcg PO QAM potassium chloride 10 mEq capsule, extended release 10 meq PO BID Qty: 180 3RF Invokana 100 mg tablet 100 mg PO QAM Qty: 90 3RF fexofenadine [Lorrie Allergy] 180 mg Tablet 180 mg PO HS omega 3-fci-tgr-fish oil [Fish Oil] 1,000 mg (120 mg-180 mg) Capsule 2,000 mg PO HS cinnamon bark 500 mg Capsule 1,000 mg PO BID Rx Instructions: TAKES WITH LUNCH & DINNER cyanocobalamin (vitamin B-12) [Vitamin B-12] 1,000 mcg Tablet 1,000 mcg PO QAM acetaminophen [Tylenol Arthritis] 650 mg Tablet Extended Release 650 mg PO UD PRN (Reason: Pain) clotrimazole-betamethasone 1-0.05 % Cream 1 applic TOPICAL BID PRN (Reason: Skin Irritation) olopatadine [Pataday] 0.2 % Drops 1 drp OPHTHALMIC (EYE) DAILY PRN (Reason: Eye Irritation) Centrum Silver Women 8 mg iron-400 mcg-300 mcg Tablet 1 tab PO QAM levothyroxine 88 mcg tablet 88 mcg PO QAM allopurinol 300 mg tablet 300 mg PO QAM insulin glargine [Lantus Solostar U-100 Insulin] 100 unit/mL (3 mL) insulin pen 18 unit SQ HS Discharge Orders: Discharge Order (Routine); Ordered 11/05/23 Ordered By: Josse Dangelo Admission Data Admit Date/Time: 11/04/23 11:49 Attending Provider: Josse Dangelo Admit Provider: Josse Dangelo Primary Care Provider: Praksah Evans
[2023-11-05] MEDS: allopurinoL 300 MG TAB PO SCH (08:14)
[2023-11-05] MEDS: TRIAMTERENE/HCTZ 37.5/25MG TAB PO SCH (08:14)
[2023-11-05] MEDS: MULTIVITAMIN TAB PO SCH (08:14)
[2023-11-05] MEDS ORDERED: NON-FORMULARY MEDICATION (Multivit-Min-Iron-Fa-Vit K-Lut [Centrum Silver Women] 8 mg iron- PO SCH (09:00)
== END 2023-11-05 11:31 | disposition home or self-care (01) ==
LOC: 3N 08:22 → ASU 08:22

== ENCOUNTER 2025-01-18 07:11 | Observation (INO) ==
--- NOTE | 2024-12-11 11:35 | PAT Medication Instructions ---
Medication Instructions Date of Service December 11, 2024 Home Medications Medication Instructions Recorded albuterol sulfate 90 mcg/actuation 2 puff inhalation QID PRN 01/11/23 aerosol inhaler (Ventolin HFA) Shortness Of Breath Or Wheezing #3 Inhalers triamterene 75 1 tab PO QAM #100 tabs 09/20/23 mg-hydrochlorothiazide 50 mg tablet allopurinol 300 mg tablet 300 mg PO QAM #90 tabs 12/06/23 metformin 500 mg tablet,extended 1,000 mg (2 x 500 mg) PO BID #360 12/24/23 release 24 hr tabs potassium chloride 10 mEq 10 meq PO BID #180 caps 01/15/24 capsule,extended release doxepin 50 mg capsule 50 mg PO HS #90 caps 06/26/24 lancets 30 gauge #300 ea 06/29/24 amoxicillin 500 mg capsule 2,000 mg (4 x 500 mg) PO ONCE #4 08/18/24 caps blood sugar diagnostic (OneTouch #300 ea 11/06/24 Verio test strips) blood-glucose meter (OneTouch #1 ea 11/06/24 Verio Flex Start kit) lancets 33 gauge (OneTouch Delica #300 ea 11/06/24 Plus Lancet) pen needle, diabetic 32 gauge x #100 ea 11/06/24 5/32" (Sure Comfort Pen Needle) levothyroxine 88 mcg tablet 88 mcg PO QAM #90 tabs 11/27/24 blood-glucose sensor (FreeStyle #6 ea 12/02/24 Daljit 3 Sensor device) pneumoc 20-jarred conj-dip cr(PF) 0.5 0.5 ml IM ONCE #0.5 mL 12/02/24 mL IM syringe (Prevnar 20 (PF)) fexofenadine 180 mg tablet (Lorrie Allergy) 180 mg PO HS omega 9-pls-snk-fish oil 1,000 mg (120 mg-180 mg) capsule (Fish Oil) 2,000 mg PO HS hydrocortisone 1 % topical cream (Anti-Itch (hydrocortisone)) 1 appln topical BID PRN metronidazole 0.75 % topical cream 1 appln topical BID PRN cholecalciferol (vitamin D3) 50 mcg (2,000 unit) capsule 50 mcg PO QAM cinnamon bark 500 mg capsule 1,000 mg PO BID acetaminophen 650 mg tablet,extended release 650 mg PO UD PRN clotrimazole-betamethasone 1 %-0.05 % topical cream 1 applic topical BID PRN cyanocobalamin (vitamin B-12) 1,000 mcg tablet (Vitamin B-12) 1,000 mcg PO QAM [id number] 8 mg-folic 400 mcg-K 50 mcg-lutein 300 mcg tablet (Centrum Silver Women) 1 tab PO QAM olopatadine 0.2 % eye drops (Pataday Once Daily Relief) 1 drp ophthalmic (eye) DAILY PRN albuterol sulfate 90 mcg/actuation aerosol inhaler (Ventolin HFA) 2 puff inhalation QID PRN triamterene 75 mg-hydrochlorothiazide 50 mg tablet 1 tab PO QAM allopurinol 300 mg tablet 300 mg PO QAM metformin 500 mg tablet,extended release 24 hr 1,000 mg (2 x 500 mg) PO BID potassium chloride 10 mEq capsule,extended release 10 meq PO BID budesonide 180 mcg/actuation breath activated powder inhaler (Pulmicort Flexhaler) 1 inh inhalation DAILY PRN doxepin 50 mg capsule 50 mg PO HS amoxicillin 500 mg capsule 2,000 mg (4 x 500 mg) PO ONCE levothyroxine 88 mcg tablet 88 mcg PO QAM insulin glargine 100 unit/mL (3 mL) subcutaneous pen (Lantus Solostar U-100 Insulin) 14 unit subcut HS calcium carbonate 600 mg PO QAM dapagliflozin propanediol 10 mg tablet (Farxiga) 10 mg PO QAM pregabalin 100 mg capsule (Lyrica) 100 mg PO BID simvastatin 20 mg tablet (Zocor) 20 mg PO HS STOP 3 days before surgery dapagliflozin propanediol 10 mg tablet (Farxiga) 10 mg PO QAM Continue as directed acetaminophen 650 mg tablet,extended release 650 mg PO UD PRN(if needed) amoxicillin 500 mg capsule 2,000 mg (4 x 500 mg) PO ONCE budesonide 180 mcg/actuation breath activated powder inhaler (Pulmicort Flexhaler) 1 inh inhalation DAILY PRN(if needed) olopatadine 0.2 % eye drops (Pataday Once Daily Relief) 1 drp ophthalmic (eye) DAILY PRN(if needed) STOP taking 2 weeks before surgery (or as soon as possible if surgery is within 2 weeks) omega 6-zai-cmw-fish oil 1,000 mg (120 mg-180 mg) capsule (Fish Oil) 2,000 mg PO HS cinnamon bark 500 mg capsule 1,000 mg PO BID STOP taking 24 hours before surgery hydrocortisone 1 % topical cream (Anti-Itch (hydrocortisone)) 1 appln topical BID PRN metronidazole 0.75 % topical cream 1 appln topical BID PRN clotrimazole-betamethasone 1 %-0.05 % topical cream 1 applic topical BID PRN DO NOT take the morning of surgery cholecalciferol (vitamin D3) 50 mcg (2,000 unit) capsule 50 mcg PO QAM calcium carbonate 600 mg PO QAM metformin 500 mg tablet,extended release 24 hr 1,000 mg (2 x 500 mg) PO BID potassium chloride 10 mEq capsule,extended release 10 meq PO BID triamterene 75 mg-hydrochlorothiazide 50 mg tablet 1 tab PO QAM cyanocobalamin (vitamin B-12) 1,000 mcg tablet (Vitamin B-12) 1,000 mcg PO QAM [id number]-liub 8 mg-folic 400 mcg-K 50 mcg-lutein 300 mcg tablet (Centrum Silver Women) 1 tab PO QAM Take morning of surgery With a small sip of water, OTHERWISE NOTHING TO EAT OR DRINK AFTER MIDNIGHT: pregabalin 100 mg capsule (Lyrica) 100 mg PO BID levothyroxine 88 mcg tablet 88 mcg PO QAM allopurinol 300 mg tablet 300 mg PO QAM albuterol sulfate 90 mcg/actuation aerosol inhaler (Ventolin HFA) 2 puff inhalation QID PRN(use if needed; please bring with you to hospital day of surgery if possible) Take evening before surgery fexofenadine 180 mg tablet (Lorrie Allergy) 180 mg PO HS simvastatin 20 mg tablet (Zocor) 20 mg PO HS pregabalin 100 mg capsule (Lyrica) 100 mg PO BID insulin glargine 100 unit/mL (3 mL) subcutaneous pen (Lantus Solostar U-100 Insulin) 14 unit subcut HS doxepin 50 mg capsule 50 mg PO HS metformin 500 mg tablet,extended release 24 hr 1,000 mg (2 x 500 mg) PO BID potassium chloride 10 mEq capsule,extended release 10 meq PO BID albuterol sulfate 90 mcg/actuation aerosol inhaler (Ventolin HFA) 2 puff inhalation QID PRN(if needed) Other Notes If you have any questions please call us at [phone] or [phone] or [phone] or [phone]
--- NOTE | 2024-12-18 11:18 | Anesthesiology Consultation ---
Date of Service December 18, 2024 Assessment & Plan (1) Encounter for pre-operative examination: Plan - check BSG am DOS. - PCP office visit 12/02/24 MN: "...R Knee Osteoarthritis-with plans to undergo replacement on 01/18/25...Asthma-Continues on Pulmicort daily as needed-Albuterol PRN-Only needed 1-2 times during COVID..." - Outpatient joint assessment: Patient is currently scheduled for inpatient pathway. If re-evaluated and patient/surgeon requests outpatient pathway, patient is not a candidate for outpatient joint program. Chart Review Chart Review: Acceptable Risk for Surgery and Patient seen in Pre Admission Testing Teaching & Discussion Pre-Anesthesia Teaching/Discussion Notes: Instructed NPO after midnight before surgery, except medications with 15 cc of water. Medication instructions provided according to the PAT guidelines. History Surgery Operation Date: 01/18/25 08:15 Proposed Procedures p Robotic Assisted Right Total Knee Arthroplasty - Josse Dangelo, Height/Weight Height: 5 ft Weight: 91.9 kg Allergies Allergy/AdvReac Type Severity Reaction Status Date / Time aspirin Allergy Severe Hives Verified 12/11/24 09:07 NSAIDS (Non-Steroidal Allergy Severe Hives Verified 12/11/24 09:07 Anti-Inflamma bacitracin Allergy Intermediate Itching, Verified 12/11/24 09:07 [From Neosporin redness ([id number])] brimonidine Allergy Intermediate Redness Verified 12/11/24 09:07 Itchy Eyes, "Crusty eyes" neomycin Allergy Intermediate Itching, Verified 12/11/24 09:07 [From Neosporin redness ([id number])] nickel Allergy Intermediate Rash, Verified 12/11/24 09:07 Itching polymyxin B Allergy Intermediate Itching, Verified 12/11/24 09:07 [From Neosporin redness ([id number])] Medications Home Medications Medication Instructions Recorded Confirmed Last Taken fexofenadine 180 mg tablet 180 mg PO HS 02/07/18 12/11/24 11/03/23 23:00 (Lorrie Allergy) omega 4-vhi-bwe-fish oil 1,000 mg 2,000 mg PO HS 02/07/18 12/11/24 10/28/23 (120 mg-180 mg) capsule (Fish Oil) hydrocortisone 1 % topical cream 1 appln topical BID PRN Rash 02/25/19 12/11/24 11/02/23 (Anti-Itch (hydrocortisone)) metronidazole 0.75 % topical cream 1 appln topical BID PRN Rosacea 02/25/19 12/11/24 11/02/23 cholecalciferol (vitamin D3) 50 50 mcg PO QAM 08/30/20 12/11/24 11/02/23 mcg (2,000 unit) capsule cinnamon bark 500 mg capsule 1,000 mg PO BID 02/05/21 12/11/24 10/28/23 acetaminophen 650 mg 650 mg PO UD PRN Pain 08/24/22 12/11/24 11/04/23 07:50 tablet,extended release clotrimazole-betamethasone 1 1 applic topical BID PRN Skin 08/24/22 12/11/24 11/02/23 %-0.05 % topical cream Irritation cyanocobalamin (vitamin B-12) 1,000 mcg PO QAM 08/24/22 12/11/24 10/28/23 1,000 mcg tablet (Vitamin B-12) gjmagaal-ahxi-bxiz 8 mg-folic 400 1 tab PO QAM 08/24/22 12/11/24 10/28/23 mcg-K 50 mcg-lutein 300 mcg tablet (Centrum Silver Women) olopatadine 0.2 % eye drops 1 drp ophthalmic (eye) DAILY PRN 08/24/22 12/11/24 11/03/23 08:00 (Pataday Once Daily Relief) Eye Irritation albuterol sulfate 90 mcg/actuation 2 puff inhalation QID PRN 01/11/23 12/11/24 Unknown aerosol inhaler (Ventolin HFA) Shortness Of Breath Or Wheezing #3 Inhalers triamterene 75 1 tab PO QAM #100 tabs 09/20/23 12/11/24 11/03/23 08:00 mg-hydrochlorothiazide 50 mg tablet allopurinol 300 mg tablet 300 mg PO QAM #90 tabs 12/06/23 12/11/24 Unknown metformin 500 mg tablet,extended 1,000 mg (2 x 500 mg) PO BID #360 12/24/23 12/11/24 Unknown release 24 hr tabs potassium chloride 10 mEq 10 meq PO BID #180 caps 01/15/24 12/11/24 Unknown capsule,extended release budesonide 180 mcg/actuation 1 inh inhalation DAILY PRN 05/07/24 12/11/24 Unknown breath activated powder inhaler Shortness Of Breath Or Wheezing (Pulmicort Flexhaler) doxepin 50 mg capsule 50 mg PO HS #90 caps 06/26/24 12/11/24 Unknown lancets 30 gauge #300 ea 06/29/24 11/06/24 Unknown amoxicillin 500 mg capsule 2,000 mg (4 x 500 mg) PO ONCE #4 08/18/24 12/11/24 Unknown caps blood sugar diagnostic (OneTouch #300 ea 11/06/24 12/02/24 Unknown Verio test strips) blood-glucose meter (OneTouch #1 ea 11/06/24 11/06/24 Unknown Verio Flex Start kit) lancets 33 gauge (OneTouch Delica #300 ea 11/06/24 11/06/24 Unknown Plus Lancet) pen needle, diabetic 32 gauge x #100 ea 11/06/24 11/06/24 Unknown 5/32" (Sure Comfort Pen Needle) levothyroxine 88 mcg tablet 88 mcg PO QAM #90 tabs 11/27/24 12/11/24 Unknown blood-glucose sensor (FreeStyle #6 ea 12/02/24 Unknown Daljit 3 Sensor device) insulin glargine 100 unit/mL (3 14 unit subcut HS 12/02/24 12/11/24 Unknown mL) subcutaneous pen (Lantus Solostar U-100 Insulin) pneumoc 20-jarred conj-dip cr(PF) 0.5 0.5 ml IM ONCE #0.5 mL 12/02/24 12/02/24 Unknown mL IM syringe (Prevnar 20 (PF)) calcium carbonate 600 mg PO QAM 12/11/24 12/11/24 Unknown dapagliflozin propanediol 10 mg 10 mg PO QAM 12/11/24 12/11/24 Unknown tablet (Farxiga) pregabalin 100 mg capsule (Lyrica) 100 mg PO BID 12/11/24 12/11/24 Unknown simvastatin 20 mg tablet (Zocor) 20 mg PO HS 12/11/24 12/11/24 Unknown Past Medical History Medical History Asthma Cough variant asthma Well controlled and stable Chronic cough "Clear phlegm" Depression Diabetic peripheral neuropathy feet Dyslipidemia Glaucoma Hx No longer using drops, no mention of this recently Gout No recent issues H/O Mohs micrographic surgery for skin cancer Face-multiple Fausto's thyroiditis Hx of cancer of uterus 11/2000, s/p hysterectomy - no chemo or XRT Hx of gastroesophageal reflux (GERD) No current issues Hypertension controlled, stable per pt Hypothyroidism Insomnia Low back pain with sciatica Occasional flare Sarcopenia Per records Type 2 diabetes mellitus, controlled IDDM Patient denies h/o stroke, seizures, heart attack, heart failure, blood clots/DVTs or blood transfusions. Exercise / Class Metabolic Activity III < 4 Walking/Shop/Light housework (denies chest discomfort or shortness of breath with usual activities) Past Family History Family History Unknown Diabetes Allergic rhinitis Atherosclerosis Mother Cardiac disorder Clotting disorder Father Stroke syndrome Daughter Environmental allergies Asthma Sinusitis Sister Clotting disorder Other No pertinent family history in first degree relatives Past Surgical History Surgical History H/O elbow surgery History of ankle surgery History of cholecystectomy History of surgery on left wrist Tendon repair History of total abdominal hysterectomy and bilateral salpingo-oophorectomy Hx of bilateral cataract extraction Hx of colonoscopy Nausea and vomiting after administration of anesthetic agent Single episode after ankle surgery Status post osteotomy Osteotomy Of The Calcaneus Status post reverse arthroplasty of right shoulder (11/04/23) Right reverse TSA: LMA#4 + regional at [facility] Past Anesthesia History No Hx of Anesthesia Complications and Other (daughter slow to wake) History of PONV No Hx of Motion Sickness and History of PONV (with ankle surgery) Social History Smoking Status: Never smoker Do You Dip or Chew Tobacco: No Hx Alcohol Use: Yes alcohol intake frequency: holidays/special occasions only Hx Substance Use: No substance use type: does not use Review of Systems Snoring, denies witnessed apneas. Patient denies chest pain, shortness of breath, dyspnea on exertion, fever, chills, cough, wheezing, or palpitations. Physical Exam Vital Signs Vitals BP 133/79 P 60 TEMP 97.6 SP02 95% on RA RESP 18 Physical Patient resting comfortably in chair in no acute distress, alert and oriented, responding appropriately throughout visit Full cervical extension range of motion without pain TMD 3.5 finger breadths Mallampati Score 3 Dentition: partial front tooth, denies chipped or loose teeth, caps/crowns, implants or bridges Lungs: normal respiratory effort. Good air movement, clear throughout to auscultation, no adventitious breath sounds Cardiac: regular rate and rhythm, no murmurs noted Carotid arteries: negative bruit bilat Lab Results Anesthesia Preop Results Results Anesthesia Widget: WBC 6.30 K/ul (4.8-10.8) 12/18/24 Hgb 14.4 g/dl (12.0-16.0) 12/18/24 Hct 44.1 % (37.0-47.0) 12/18/24 Plt 141 K/uL (130-400) 12/18/24 Na 138 mmol/L (136-145) 12/18/24 K 3.3 mmol/L (3.5-5.1) L 12/18/24 Cl 101 mmol/L (98-107) 12/18/24 CO2 28 mmol/L (21-32) 12/18/24 BUN 21 mg/dl (6-23) 12/18/24 Creat 0.96 mg/dl (0.6-1.2) 12/18/24 Glucose Level 138 mg/dl (70-99(Fasting)) H 12/18/24 PT 10.9 Seconds (9.0-12.0) 12/18/24 PTT 29 Seconds (21-31) 12/18/24 INR 1.0 (0.9-1.1) 12/18/24 TSH 3.532 uIu/ml (0.300-4.500) 10/27/24 HA1c 7.0 % (4.5-5.6) H 12/18/24 Blood Type A Positive 12/18/24 Antibody Screen NEGATIVE 12/18/24 Testing Electrocardiogram Date: 12/18/24 Sinus bradycardia with 1st degree AV block, rate 55 bpm Right superior axis deviation Low voltage QRS Possible anterior infarct, cited on or before 11/12/2000 No significant change vs 10/07/2023 EKG Chest X-Ray Date: 12/18/24 No active cardiopulmonary disease.
--- NOTE | 2025-01-14 07:30 | History & Physical Report ---
Date of Service January 14, 2025 Assessment & Plan (1) Osteoarthritis of right knee: We will proceed with a right total knee arthroplasty. Postoperatively, she will be started on aspirin for DVT prophylaxis and kept overnight in the hospital for postop medical management. She plans to use energy physical therapy at discharge. History of Present Illness Chief Complaint: Osteoarthritis right knee. Primary Care Provider: Tate Mcdaniels DO Jade is a pleasant 79-year-old female who has been doing with chronic increasing right knee pain. X-rays and clinical examination and been diagnostic for advanced arthritis of the right knee. After failing years of conservative treatment, she has elected proceed with a right total knee arthroplasty.. Allergies Allergy/AdvReac Type Severity Reaction Status Date / Time aspirin Allergy Severe Hives Verified 12/11/24 09:07 NSAIDS (Non-Steroidal Allergy Severe Hives Verified 12/11/24 09:07 Anti-Inflamma bacitracin Allergy Intermediate Itching, Verified 12/11/24 09:07 [From Neosporin redness ([id number])] brimonidine Allergy Intermediate Redness Verified 12/11/24 09:07 Itchy Eyes, "Crusty eyes" neomycin Allergy Intermediate Itching, Verified 12/11/24 09:07 [From Neosporin redness ([id number])] nickel Allergy Intermediate Rash, Verified 12/11/24 09:07 Itching polymyxin B Allergy Intermediate Itching, Verified 12/11/24 09:07 [From Neosporin redness ([id number])] Home Medications Medication Instructions Recorded Confirmed Type fexofenadine 180 mg tablet 180 mg PO HS 02/07/18 12/11/24 History (Lorrie Allergy) omega 0-mmx-wex-fish oil 1,000 mg 2,000 mg PO HS 02/07/18 12/11/24 History (120 mg-180 mg) capsule (Fish Oil) hydrocortisone 1 % topical cream 1 appln topical BID PRN Rash 02/25/19 12/11/24 History (Anti-Itch (hydrocortisone)) metronidazole 0.75 % topical cream 1 appln topical BID PRN Rosacea 02/25/19 12/11/24 History cholecalciferol (vitamin D3) 50 50 mcg PO QAM 08/30/20 12/11/24 History mcg (2,000 unit) capsule cinnamon bark 500 mg capsule 1,000 mg PO BID 10/17/21 08/22/25 History acetaminophen 650 mg 650 mg PO UD PRN Pain 08/24/22 12/11/24 History tablet,extended release clotrimazole-betamethasone 1 1 applic topical BID PRN Skin 08/24/22 12/11/24 History %-0.05 % topical cream Irritation cyanocobalamin (vitamin B-12) 1,000 mcg PO QAM 08/24/22 12/11/24 History 1,000 mcg tablet (Vitamin B-12) [id number] 8 mg-folic 400 1 tab PO QAM 08/24/22 12/11/24 History mcg-K 50 mcg-lutein 300 mcg tablet (Centrum Silver Women) olopatadine 0.2 % eye drops 1 drp ophthalmic (eye) DAILY PRN 08/24/22 12/11/24 History (Pataday Once Daily Relief) Eye Irritation triamterene 75 1 tab PO QAM #100 tabs 09/20/23 12/11/24 Rx mg-hydrochlorothiazide 50 mg tablet metformin 500 mg tablet,extended 1,000 mg (2 x 500 mg) PO BID #360 12/24/23 12/11/24 Rx release 24 hr tabs potassium chloride 10 mEq 10 meq PO BID #180 caps 01/15/24 12/11/24 Rx capsule,extended release doxepin 50 mg capsule 50 mg PO HS #90 caps 06/26/24 12/11/24 Rx lancets 30 gauge #300 ea 06/29/24 11/06/24 Rx amoxicillin 500 mg capsule 2,000 mg (4 x 500 mg) PO ONCE #4 08/18/24 12/11/24 Rx caps blood sugar diagnostic (OneTouch #300 ea 11/06/24 12/02/24 Rx Verio test strips) blood-glucose meter (OneTouch #1 ea 11/06/24 11/06/24 Rx Verio Flex Start kit) lancets 33 gauge (OneTouch Delica #300 ea 11/06/24 11/06/24 Rx Plus Lancet) pen needle, diabetic 32 gauge x #100 ea 11/06/24 11/06/24 Rx 5/32" (Sure Comfort Pen Needle) levothyroxine 88 mcg tablet 88 mcg PO QAM #90 tabs 11/27/24 12/11/24 Rx blood-glucose sensor (FreeStyle #6 ea 12/02/24 Rx Daljit 3 Sensor device) insulin glargine 100 unit/mL (3 14 unit subcut HS 12/02/24 12/11/24 History mL) subcutaneous pen (Lantus Solostar U-100 Insulin) pneumoc 20-jarred conj-dip cr(PF) 0.5 0.5 ml IM ONCE #0.5 mL 12/02/24 12/02/24 Rx mL IM syringe (Prevnar 20 (PF)) calcium carbonate 600 mg PO QAM 12/11/24 12/11/24 History dapagliflozin propanediol 10 mg 10 mg PO QAM 12/11/24 12/11/24 History tablet (Farxiga) pregabalin 100 mg capsule (Lyrica) 100 mg PO BID 12/11/24 12/11/24 History budesonide 180 mcg/actuation 1 inh inhalation DAILY PRN 12/23/24 Rx breath activated powder inhaler Shortness Of Breath Or Wheezing #1 (Pulmicort Flexhaler) ea allopurinol 300 mg tablet 300 mg PO QAM #90 tabs 01/06/25 Rx simvastatin 20 mg tablet (Zocor) 20 mg PO HS #90 tabs 01/08/25 Rx albuterol sulfate 90 mcg/actuation 2 puff inhalation Q6H PRN 01/12/25 Rx aerosol inhaler shortness of breath or wheezing #8.5 grams Past Med/Surg History Problem List Osteoarthritis of right knee Rotator cuff arthropathy of right shoulder Rotator cuff tear, right Cough Chronic - stable Obesity Osteoarthritis of right hand Asthma Depression Diabetic peripheral neuropathy associated with type 2 diabetes mellitus Dysesthesia Dyslipidemia Esophageal reflux Glaucoma Fausto's thyroiditis Hypertension Hypothyroidism Insomnia Type 2 diabetes mellitus, with long-term current use of insulin Vitamin D deficiency Medical History Sarcopenia Per records Chronic cough "Clear phlegm" Hx of cancer of uterus 11/2000, s/p hysterectomy - no chemo or XRT Type 2 diabetes mellitus, controlled IDDM Insomnia Hypothyroidism Hypertension controlled, stable per pt Fausto's thyroiditis Hx of gastroesophageal reflux (GERD) No current issues Glaucoma Hx No longer using drops, no mention of this recently Gout No recent issues Dyslipidemia Diabetic peripheral neuropathy feet Depression Asthma Cough variant asthma Well controlled and stable H/O Mohs micrographic surgery for skin cancer Face-multiple Low back pain with sciatica Occasional flare Surgical History Nausea and vomiting after administration of anesthetic agent Single episode after ankle surgery Status post reverse arthroplasty of right shoulder (11/04/23) Right reverse TSA: LMA#4 + regional at [facility] History of surgery on left wrist Tendon repair Hx of colonoscopy Hx of bilateral cataract extraction Status post osteotomy Osteotomy Of The Calcaneus H/O elbow surgery History of ankle surgery History of total abdominal hysterectomy and bilateral salpingo-oophorectomy History of cholecystectomy Family History Unknown Diabetes Allergic rhinitis Atherosclerosis Mother Cardiac disorder Clotting disorder Father Stroke syndrome Daughter Environmental allergies Asthma Sinusitis Sister Clotting disorder Other No pertinent family history in first degree relatives Social History Smoking Status: Never smoker Second Hand Exposure: No; Do You Dip or Chew Tobacco: No; Tobacco Cessation Education Requested by Patient: No Hx Alcohol Use: Yes Hx Substance Use: No Preferred Language: [place] Zealander Communication Ability: 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 Physical Exam On physical examination of her right knee. She is good range of motion. She has pain of the distal medial femoral condyle and over the medial joint line.. Constitutional WD/WN, vitals as above Eyes PERRL, conjunctivae normal, anicteric sclerae ENMT external ear and nose normal, oropharynx normal Neck trachea midline, no thyromegaly Respiratory normal respiratory effort Cardiovascular RRR, no murmur, no edema Gastrointestinal (Abdomen) normal bowel sounds, soft, nontender, no hepatosplenomegaly Psychiatric A+Ox3, euthymic affect Results & Data Results & Data Laboratory Results . Diagnostic Findings . PG Care Time/CCT Total # of Minutes Spent Total Time Spent with Patient: Total time spent is greater than 50% in coordination of care (as documented) at patient's floor/unit and/or counseling patient: Coding Level of Care Code None Diagnoses Osteoarthritis of right knee M17.11
[~2025-01-18 07:11] MED LIST changes: +BUPIVACAINE 0.25% PF 30 ML VIAL ONE
[2025-01-18] MEDS ORDERED: PROPOFOL IV EMULSION 10 MG/ML 20 ML VIAL IV ONE (07:22)
[2025-01-18] MEDS ORDERED: ONDANSETRON INJ 2 MG/ML 2 ML VIAL ONE (07:22)
[2025-01-18] MEDS ORDERED: MIDAZOLAM HCL 1 MG/ML 2ML VIAL ONE (07:23)
[2025-01-18] MEDS: LR 500ML BOLUS, THEN 15ML/HR IV SCH (08:15)
[2025-01-18] MEDS: GABAPENTIN 300 MG CAP PO SCH (08:21)
[2025-01-18] MEDS: ACETAMINOPHEN 500 MG TAB PO SCH ×2 (08:21→13:08)
[2025-01-18] MEDS: FAMOTIDINE 20 MG TAB PO SCH (08:21)
[2025-01-18] MEDS: LR 60ML/HR IV SCH (08:21)
[2025-01-18] MEDS: dexAMETHasone**PF** 10 MG/ML VIAL IV SCH (08:21)
--- NOTE | 2025-01-18 08:30 | History & Physical Bridge Note ---
Date of Service January 18, 2025 History & Physical Bridge Note I have examined the patient, reviewed the History & Physical and in the interval since the performance of the History & Physical I have noted the following changes of clinical significance: no changes noted
[2025-01-18] MEDS: TRANEXAMIC ACID 1,000 MG **IV Pre-op IV SCH (09:05)
[2025-01-18] MEDS: ROPIVACAINE 0.5% HCL/PF 246 MG, EPINEPHrine 30MG/30ML (OR USE) 0.5 MG in SODIUM CHLORID... INFIL SCH (10:07)
[2025-01-18] MEDS: ORTHO JOINT ANESTHETIC ONE (10:08)
--- NOTE | 2025-01-18 10:34 | Operative Report ---
PG Post Operative Report Pre & Post Diagnosis Operation Date: 01/18/25 09:00 Pre-Op Diagnosis: Right Knee Arthritis Post-Op Diagnosis: Right Knee Arthritis I identified the patient and participated in the time-out.: Yes Procedure Operation Date: 01/18/25 09:00 Actual Procedures p Robotic Assisted Right Total Knee Arthroplasty(Right) - Josse Dangelo DO Surgeon Josse Dangelo DO Language Instructor Maggie Perez PA-C Estimated Blood Loss 30 Findings Consistent with Post-Op Diagnosis Specimens Right femoral and tibial bone Description of Procedure Implants used: I used a Aquiles Persona total knee arthroplasty system with a size 7 narrow PS femur, C tibia, 29 patella, and a size 12 CPS polyethylene bearing. All components were nickel free and press-fit into place. [facility] arrived [facility] for the above procedure. She was seen in the preoperative holding area and the operative extremity was identified and signed. She was given a preoperative antibiotic, TXA, a spinal anesthetic and an adductor nerve block. She was taken back to the operating room and laid on the table in supine position. She was given basic sedation. The operative knee was then prepped and draped in sterile fashion. A timeout was done, and the patient and the operative extremity was properly identified. A midline incision was made directly over the patella. Dissection was taken down to the extensor mechanism. A medial parapatellar arthrotomy was used. The medial retinaculum was released and the fat pad was mostly excised. The knee was flexed and the ACL, PCL, and meniscus were removed. The alignment of the knee replacement was assisted with a Soundwave robotic knee. The femoral array was pinned in the distal femur and the tibial array was pinned using a percutaneous technique in the upper shaft of the tibia. The robot was appropriately calibrated and the structure of the knee was mapped out. The components were then manipulated on the screen to account for any malalignment and to assist in gap balancing. Once I was happy with the placement of the components on the screen, a distal femoral cutting guide was brought in place. The distal femur was then resected. The femur measured to be a size 7. A 4-in-1 cutting block was then put into place by the robot and 2 peg holes were drilled. The 4-in-1 cutting block was then impacted into place and anterior, posterior, and chamfer cuts were made. The cutting block was then brought down to the tibia and pinned into place. The proximal tibia was then resected. The posterior aspect of the knee was then opened up and any additional meniscus fragments and osteophytes were removed. The tibia measured to be a size C. The tibial plate was then placed in the appropriate rotation and the tibia was drilled and punched. Trial components were then placed. The patella was then everted and 9 mm was resected off the posterior aspect of the patella. The patella measured to be a size 29. 3 peg holes were then drilled. A trial patella was placed. A size 12 CPS polyethylene insert was then trialed. The knee was brought through a full range of motion and felt to be stable. Trial components were then removed. The surrounding soft tissues were injected with 100 cc of an orthopedic pain control cocktail. All components were then pr ess-fit into place. The final polyethylene insert was then snapped into place. The tourniquet was deflated. Hemostasis was obtained. A dilute betadyne lavage was then done for 3 minutes. The joint was then irrigated with normal saline solution. The medial parapatellar arthrotomy was then closed with #1 Vicryl suture. The skin was closed with 2-0 Vicryl, 3-0V lock suture, and Kierra Zipline. A soft compressive dressing was placed. She was then transferred to a hospital bed and taken to the postanesthesia care unit in stable condition. She tolerated the procedure well. Maggie Perez PA-C, was present for the entire procedure. He was critical for patient positioning, prepping, draping, retraction exposure, wound closure and application of sterile dressing. I attest to the content of the Intraoperative Record and any orders documented therein. Any exceptions are noted below.
[2025-01-18] MEDS ORDERED: ePHEDrine sulfate 50 MG/5 ML SYR ONE (10:52)
--- NOTE | 2025-01-18 11:32 | XRay Report ---
XR knee RT 1 or 2V routine CLINICAL HISTORY: Surgical Post Op COMPARISON: None FINDINGS: Right knee prosthesis shows no hardware complication. There is expected soft tissue gas. IMPRESSION: Unremarkable postoperative exam. ACT 112: Negative or not required by law. Electronically signed by: Darius Persaud M.D. 01/18/2025 11:31 AM
--- NOTE | 2025-01-18 12:02 | Anesthesiology Progress Note ---
Date of Service January 18, 2025 Anesthesia Post Procedure Vital Signs Vital Signs: Temp Pulse Resp BP Pulse Ox O2 Del Method O2 Flow Rate 01/18/25 11:30 80 19 123/58 L 93 Room Air 0 01/18/25 11:20 81 12 103/84 97 Oxymask 2 01/18/25 11:10 78 12 116/64 96 Oxymask 2 01/18/25 11:03 36.2 C L 78 24 115/56 L 92 Room Air 01/18/25 07:49 36.7 C 72 20 165/92 H 98 Room Air Transfer of Care Handoff Completed per policy Notes Mental Status: alert / awake / arousable Patient Amnestic to Procedure: Yes Nausea / Vomiting: adequately controlled Pain: adequately controlled Airway Patency, RR, SpO2: stable & adequate BP & HR: stable & adequate Hydration State: stable & adequate Neuraxial Anesthesia: was administered and sensory block is resolving Anesthetic Complications: no major complications apparent and Pt Satisfied with anesthetic care
[2025-01-18] MEDS ORDERED: diphenhydrAMINE Capsule 25 MG CAP PO PRN (12:49)
[2025-01-18] MEDS ORDERED: ALBUTEROL HFA 8 GM INHALER INH PRN (12:49)
[2025-01-18] MEDS ORDERED: ONDANSETRON INJ 2 MG/ML 2 ML VIAL IV PRN (12:49)
[2025-01-18] MEDS ORDERED: MAGNESIUM HYDROXIDE SUSP 30 ML UDC PO PRN (12:49)
[2025-01-18] MEDS ORDERED: PNEUMOCOCCAL VACCINE (PCV20) 20-VAL CONJ-DIP CRM/PF 0.5 ML SYR IM SCH (12:49)
[2025-01-18] MEDS ORDERED: CLOTRIMAZOLE/BETAMETHASONE CR 15 GM TUBE EXT PRN (12:49)
[2025-01-18] MEDS ORDERED: METOCLOPRAMIDE HCL INJ 5 MG/ML 2 ML VIAL IV PRN (12:49)
[2025-01-18] MEDS ORDERED: NALOXONE HCL 0.4 MG/1 ML VIAL/CARP IV PRN (12:49)
[2025-01-18] MEDS: SODIUM CHLORIDE 0.9% 1,000 ML IV SCH (13:05)
[2025-01-18] MEDS ORDERED: FLUTICASONE FUROATE 100MCG 14 PUFFS/INHALER INH PRN (13:25)
[2025-01-18] MEDS ORDERED: HYDROCORTISONE 1% CRM 30 GM TUBE EXT PRN (13:27)
[2025-01-18] MEDS: SENNA 8.6 MG TAB PO SCH (20:35)
[2025-01-18] MEDS: PREGABALIN 100 MG CAP PO SCH (20:36)
[2025-01-18] MEDS: POTASSIUM CHLORIDE 10 MEQ TABCR PO SCH (20:36)
[2025-01-18] MEDS: DOCUSATE SODIUM 100 MG CAP PO SCH (20:36)
[2025-01-18] MEDS: DOXEPIN HCL 50 MG CAPSULE PO SCH (20:37)
[2025-01-18] MEDS: OMEGA-3 (PURIFIED FISH OIL) 1 GM CAP PO SCH (20:37)
[2025-01-18] MEDS: FEXOFENADINE HCL 180 MG TAB PO SCH (20:38)
[2025-01-18] MEDS: SIMVASTATIN 20 MG TAB PO SCH (20:39)
[2025-01-18] MEDS: LANTUS PER UNIT CHARGE SQ SCH (20:39)
[2025-01-18] MEDS ORDERED: OMEGA-3 (PURIFIED FISH OIL) 1 GM CAP PO SCH (21:00)
[2025-01-19] MEDS: APIXABAN 2.5 MG TAB PO SCH (08:42)
[2025-01-19] MEDS: LEVOTHYROXINE SODIUM 88 MCG TABLET PO SCH (08:42)
--- NOTE | 2025-01-19 08:42 | Orthopedic Progress Note ---
Date of Service January 19, 2025 Assessment & Plan (1) Status post total right knee replacement: * Continue Current Treatment * Disposition: TBD, rehab vs home * Daily treatment: Physical Therapy/ Occupational Therapy per protocol * Weight bearing status: WBAT * Continue to monitor for ABLA * Pain control * DVT prophylaxis, Eliquis * Office/hospital f/u 2 weeks for progress check and staple/suture removal * Plan for discharge today pending PT/OT clearance Subjective .Active Problems: S/p right TKA POD 1 79 y/o female s/p right TKA. Doing well overall, pain managed and improved function. Denies fever/chills, chest pain/SOB, nausea/vomiting. Concerned about pain and return to activity, discussed home vs rehab possibility. Review of Systems All systems reviewed & are unremarkable except as noted in HPI & below. Physical Exam . * General: Alert and oriented, no acute distress * Constitutional: well-developed, well-nourished. * Respiratory: Normal respiratory effort, no distress * Gastrointestinal: No tenderness to palpation, no rigidity or guarding. * Skin: No rash or lesion. * Neurologic: Grossly normal * Musculoskeletal: right knee surgical dressing CDI, not removed for exam. Otherwise no obvious deformity or overlying skin changes RLE. Diffuse TTP distal thigh and knee region. Otherwise no specific tenderness of proximal thigh, lower leg, foot/ankle. AROM knee flexion 80 degrees. AROM foot/ankle intact. Sensation intact plantar/dorsal foot. Brisk capillary refill. Results & Data Results & Data Laboratory Results . Diagnostic Findings . Knee X-Ray 01/18/25 11:13 XR knee RT 1 or 2V routine CLINICAL HISTORY: Surgical Post Op COMPARISON: None FINDINGS: Right knee prosthesis shows no hardware complication. There is expected soft tissue gas. IMPRESSION: Unremarkable postoperative exam. ACT 112: Negative or not required by law. Electronically signed by: Darius Persaud M.D. 01/18/2025 11:31 AM PG Care Time/CCT Total # of Minutes Spent Total Time Spent with Patient: Total time spent is greater than 50% in coordination of care (as documented) at patient's floor/unit and/or counseling patient: Coding Level of Care Code 22005 Post Operative Follow-Up Diagnoses Status post total right knee replacement Z96.651
[2025-01-19] MEDS: CYANOCOBALAMIN (B-12) 500 MCG TABLET PO SCH (08:43)
[2025-01-19] MEDS: CALCIUM CARBONATE 1250MG TAB PO SCH (08:43)
[2025-01-19] MEDS: TRIAMTERENE/HCTZ 37.5/25MG TAB PO SCH (08:43)
[2025-01-19] MEDS: CHOLECALCIFEROL 25 MCG (1000 UNITS) TAB PO SCH (08:43)
[2025-01-19] MEDS ORDERED: NON-FORMULARY MEDICATION (Multivit-Min-Iron-Fa-Vit K-Lut [Centrum Silver Women] 8 mg iron- PO SCH (09:00)
--- NOTE | 2025-01-20 08:55 | Orthopedic Progress Note ---
Date of Service January 20, 2025 Assessment & Plan (1) Status post total right knee replacement: * Continue Current Treatment * Disposition: TBD, rehab vs home * Daily treatment: Physical Therapy/ Occupational Therapy per protocol * Weight bearing status: WBAT * Continue to monitor for ABLA * Pain control, Tramadol * DVT prophylaxis, Eliquis * Office/hospital f/u 2 weeks for progress check and staple/suture removal * Plan for discharge today pending PT/OT clearance Subjective Active Problems: S/p right TKA POD 2 79 y/o female s/p right TKA. Doing well overall, pain managed and improved function. Feels better today taking Tramadol instead of Oxycodone. Denies f ever/chills, chest pain/SOB, nausea/vomiting. Anticipating discharge home after working with OT today. Review of Systems All systems reviewed & are unremarkable except as noted in HPI & below. Physical Exam * Musculoskeletal: right knee surgical dressing CDI, not removed for exam. Otherwise no obvious deformity or overlying skin changes RLE. Diffuse TTP distal thigh and knee region. Otherwise no specific tenderness of proximal thigh, lower leg, foot/ankle. AROM knee flexion 80 degrees. AROM foot/ankle intact. Sensation intact plantar/dorsal foot. Brisk capillary refill. Results & Data Results & Data Laboratory Results . Diagnostic Findings . PG Care Time/CCT Total # of Minutes Spent Total Time Spent with Patient: Total time spent is greater than 50% in coordination of care (as documented) at patient's floor/unit and/or counseling patient: Coding Level of Care Code 04869 Post Operative Follow-Up Diagnoses Status post total right knee replacement Z96.651
[2025-01-20 23:00] VITALS: O2SAT 95
[2025-01-21] MEDS: INFLUENZA VACC TS2025-26(65y+)/PF (IIV3) 0.5mL Syr IM ONE (07:15)
[2025-01-21 07:56] VITALS: BP 135/81; PULSE 75; RESP 18; TEMP 97.9
--- NOTE | 2025-01-21 09:43 | Orthopedic Progress Note ---
Date of Service January 21, 2025 Assessment & Plan (1) Status post total right knee replacement: * Continue Current Treatment * Disposition: TBD, rehab/SNF * Daily treatment: Physical Therapy/ Occupational Therapy per protocol * Weight bearing status: WBAT * Continue to monitor for ABLA * Pain control, Tramadol * DVT prophylaxis, Eliquis * Office/hospital f/u 2 weeks for progress check and staple/suture removal * Plan for discharge today pending PT/OT clearance Subjective Active Problems: S/p right TKA POD 3 79 y/o female s/p right TKA. Doing well overall, pain managed and improved function. Feels better today taking Tramadol instead of Oxycodone. More alert today. Denies fever/chills, chest pain/SOB, nausea/vomiting. Anticipating discharge home after working with OT today. Review of Systems All systems reviewed & are unremarkable except as noted in HPI & below. Physical Exam * Musculoskeletal: right knee surgical dressing CDI, not removed for exam. Ot herwise no obvious deformity or overlying skin changes RLE. Diffuse TTP distal thigh and knee region. Otherwise no specific tenderness of proximal thigh, lower leg, foot/ankle. AROM knee flexion 80 degrees. AROM foot/ankle intact. Sensation intact plantar/dorsal foot. Brisk capillary refill. Results & Data Results & Data Laboratory Results . Diagnostic Findings . PG Care Time/CCT Total # of Minutes Spent Total Time Spent with Patient: Total time spent is greater than 50% in coordination of care (as documented) at patient's floor/unit and/or counseling patient: Coding Level of Care Code 36883 Post Operative Follow-Up Diagnoses Status post total right knee replacement Z96.651
--- NOTE | 2025-01-21 14:29 | Discharge Summary ---
Date of Service January 21, 2025 Admission HPI (Per Admitting) Jade is a pleasant 79-year-old female who has been doing with chronic increasing right knee pain. X-rays and clinical examination and been diagnostic for advanced arthritis of the right knee. After failing years of conservative treatment, she has elected proceed with a right total knee arthroplasty.. Admission Exam (Per Admitting) On physical examination of her right knee. She is good range of motion. She has pain of the distal medial femoral condyle and over the medial joint line.. Principal Diagnosis Same as "Discharge Diagnosis" noted below under Discharge Instructions. Discharge Exam * Musculoskeletal: right knee surgical dressing CDI, not removed for exam. Otherwise no obvious deformity or overlying skin changes RLE. Diffuse TTP distal thigh and knee region. Otherwise no specific tenderness of proximal thigh, lower leg, foot/ankle. AROM knee flexion 80 degrees. AROM foot/ankle intact. Sensation intact plantar/dorsal foot. Brisk capillary refill. Discharge Data Procedures Performed Operation Date: 01/18/25 09:00 Actual Procedures p Robotic Assisted Right Total Knee Arthroplasty(Right) - Josse Dangelo DO Ordered Studies 01/18/25 05:00 US - OR guided needle placemen Routine Hospital Course (1) Status post total right knee replacement: Plan Patient presents to hospital 01/18/2025 for elective right total knee arthroplasty. This was completed without complication. Following procedure patient was admitted to hospital for pain control, observation, PT/OT evaluation. In the days following procedure patient's pain was adequately controlled through combination of oral and IV pain medications. She then completed multiple sessions with PT/OT teams whose recommendation was for rehab versus SNF. Her limited mobility was also complicated by limited assistance at home. Patient was accepted to SNF and was cleared for discharge 01/21/2025. All questions answered, patient to follow-up in office as scheduled in approximately 2 weeks. PG Care Time/CCT Total # of Minutes Spent Total Time Spent with Patient: Total time spent is greater than 50% in coordination of care (as documented) at patient's floor/unit and/or counseling patient: Discharge Plan Discharge Items Patient Disposition: Transfer Detention Fac Reason For Visit: Right Knee Arthritis Discharge Diagnosis: s/p right total knee arthroplasty Activity: Per Instructions section Non-emergency contact: Surgeon Call non-emergency contact if: your symptoms worsen, your pain is not controlled, your temperature is above 101.5, your wound has increased redness and your wound has increased drainage Follow-up/Referrals: Tate Mcdaniels DO [Primary Care Provider] - Diet: Carb Consistent or DM2 Addtl Attending Provider Instructions: Activity and Therapy Recommendations: * If you are using [facility] then therapy will be provided at your home until they feel you have accomplished all of your goals. * If you are using [facility] then Physical Therapy will be provided until they feel you are ready to start Outpatient Physical Therapy. * If you are not using home therapy then Outpatient Physical Therapy should start about 3-5 days from your day of surgery. Therapy will last about 6-10 weeks * It is important not to put a pillow under your knee when you are relaxing or sleeping. It is just as important to make sure you are getting your knee perfectly straight as it is to regain your knee bend. * You were shown a series of exercises in the hospital. Do these exercises three times each day including the exercises you were shown in physical therapy. * Get up and walk several times each day. For the first four weeks, try not to stand or walk for more than one hour at a time. If you do stand or walk for more than one hour, you will not hurt anything, but your leg will likely swell. * As you feel comfortable, you may change from the walker or crutches to a cane and then to independent walking. Medications: * Narcotic You will likely be sent home from the hospital with a prescription for the narcotic pain medication that worked best throughout your stay. * Cefadroxil -take the antibiotic twice a day for 10 days to help prevent infection. * Aspirin Most patients will be required to take Aspirin 81mg twice a day for 6 weeks after surgery. This is obtained [id number] and a prescription is not necessary. * Other medications may be prescribed for specific circumstances. If you have any questions, please call the office at . * Resume previous home medications unless otherwise instructed TEDs/Elastic Stockings: The white elastic stockings help limit swelling and prevent blood clots from forming in your legs.~ The more you wear them, the more they work. Wear them for 2 weeks. Dressing Care: The dressing can be changed after physical therapy on postop day #1. Daily dry dressing changes for a few days, especially if the incision is still draining some. Do not remove the [place] zip line If the incision is not draining then you may leave the [place] zip line open to air. If there is a little bit of drainage or if the [place] zip line is getting stuck on your clothing then cover the incision with a dry dressing. The [place] zip line will be removed at your 2 week follow-up appointment. Showering: You may shower 5 days from the day of surgery as long as the incision is no longer draining. You may shower with the [place] zip line exposed. Let soapy water run over the [place] zip line and pat it dry. Do not scrub or soak the incision. Diet: You may resume your previous diet. Things To Watch For: * Drainage from the incision site that occurs more than one week after your surgery. * Increased redness at the incision site. * Fever above 102 degrees Fahrenheit. * Unusual chest pain or shortness of breath. * Call [facility] at with any of the above problems Follow-Up Visit: Follow-up with Dr. Dangelo's office 2-3 weeks after your day of surgery. We will remove your haritha and answer any questions. If you have any additional questions or concerns, Dr Dangelo is usually in the office at the same time and will be available An appointment was probably scheduled when you signed-up for surgery in the office. If you have any questions call Office Instructions: More detailed instructions as well as Frequently Asked Questions were provided in a folder by our office when you signed-up for surgery. Please review these instructions when you get home. If you have any further questions or concerns, please feel free to call the office at [phone] Pending Studies at Discharge: No Stand-Alone Forms: My [facility], Smoking Cessation Skilled Items Patient informed of condition?: Yes DNR: No Discharge Level of Care: Skilled Communicable Disease: No Discharge Prognosis: Stable Lines: None Urinary Catheter: No Medications and DC Order Prescriptions: New tramadol 50 mg tablet 50 mg PO Q6H PRN (Reason: pain) Qty: 30 0RF cefadroxil 500 mg capsule 500 mg PO BID Qty: 20 0RF Senokot Extra Strength 17.2 mg tablet 17.2 mg PO HS PRN (Reason: constipation) Qty: 14 0RF Eliquis 2.5 mg tablet 2.5 mg PO BID Qty: 90 0RF Continued triamterene-hydrochlorothiazid 75-50 mg tablet 1 tab PO QAM Qty: 100 3RF metformin 500 mg tablet extended release 24 hr 1,000 mg PO BID Qty: 360 3RF Rx Instructions: Take with food. TAKES WITH LUNCH & DINNER potassium chloride 10 mEq capsule, extended release 10 meq PO BID Qty: 180 3RF doxepin 50 mg capsule 50 mg PO HS Qty: 90 3RF (DME) lancets 30 gauge misc See Rx Instructions .ROUTE .MEDSUPPLY Qty: 300 3RF Rx Instructions: Use to test blood sugar 3 times a day amoxicillin 500 mg capsule 2,000 mg PO ONCE Qty: 4 2RF Rx Instructions: take 30-60 minutes prior to dental procedure levothyroxine 88 mcg tablet 88 mcg PO QAM Qty: 90 3RF (DME) FreeStyle Daljit 3 Sensor Device See Rx Instructions .Route Qty: 6 3RF Rx Instructions: change sensor Q15D Pulmicort Flexhaler 180 mcg/actuation aerosol powdr breath activated 1 inh inhalation DAILY PRN (Reason: Shortness Of Breath Or Wheezing) Qty: 1 1RF allopurinol 300 mg tablet 300 mg PO QAM Qty: 90 3RF simvastatin [Zocor] 20 mg tablet 20 mg PO HS Qty: 90 3RF albuterol sulfate 90 mcg/actuation HFA aerosol inhaler 2 puff inhalation Q6H PRN (Reason: shortness of breath or wheezing) Qty: 8.5 3RF metronidazole 0.75 % cream 1 appln TOP BID PRN (Reason: Rosacea) hydrocortisone [Anti-Itch (HC)] 1 % cream 1 appln TOP BID PRN (Reason: Rash) cholecalciferol (vitamin D3) 50 mcg (2,000 unit) capsule 50 mcg PO QAM (DME) pen needle, diabetic [Sure Comfort Pen Needle] 32 gauge x 5/32" needle See Rx Instructions .Route Qty: 100 3RF Rx Instructions: use 1 QD (DME) blood-glucose meter [OneTouch Verio Flex Start] Kit See Rx Instructions .Route Qty: 1 0RF Rx Instructions: use to test blood sugars (DME) lancets [OneChemDAQuch Delica Plus Lancet] 33 gauge misc See Rx Instructions .Route Qty: 300 3RF Rx Instructions: test blood sugar 3 x daily (DME) OneTouch Verio test strips Strip See Rx Instructions .Route Qty: 300 3RF Rx Instructions: test blood sugar 3 x daily insulin glargine [Lantus Solostar U-100 Insulin] 100 unit/mL (3 mL) insulin pen 14 unit SQ HS Prevnar 20 (PF) 0.5 mL syringe 0.5 ml IM ONCE Qty: 0.5 0RF Patient Comments: "I havent had it." fexofenadine [Lorrie Allergy] 180 mg Tablet 180 mg PO HS omega 4-ljw-pdx-fish oil [Fish Oil] 1,000 mg (120 mg-180 mg) Capsule 2,000 mg PO HS cinnamon bark 500 mg Capsule 1,000 mg PO BID Rx Instructions: TAKES WITH LUNCH & DINNER cyanocobalamin (vitamin B-12) [Vitamin B-12] 1,000 mcg Tablet 1,000 mcg PO QAM acetaminophen 650 mg Tablet Extended Release 650 mg PO UD PRN (Reason: Pain) clotrimazole-betamethasone 1-0.05 % Cream 1 applic TOPICAL BID PRN (Reason: Skin Irritation) olopatadine [Pataday Once Daily Relief] 0.2 % Drops 1 drp OPHTHALMIC (EYE) DAILY PRN (Reason: Eye Irritation) Centrum Silver Women 8 mg iron-400 mcg-300 mcg Tablet 1 tab PO QAM calcium carbonate 600 mg calcium (1,500 mg) tablet 600 mg PO QAM pregabalin [Lyrica] 100 mg capsule 100 mg PO BID dapagliflozin propanediol [Farxiga] 10 mg tablet 10 mg PO QAM Discharge Orders: Discharge Order (Routine); Ordered 01/21/25 Ordered By: Bossman Barajas Admission Data Admit Date/Time: 01/21/25 09:27 Attending Provider: Josse Dangelo Admit Provider: Josse Dangelo Primary Care Provider: Tate Mcdaniels Other Providers: [facility]; [facility] Other Interventions: Discharge Summary Assessment (RN) Last Done: 01/21/25 12:07
== END 2025-01-21 14:57 | DRG 470 ==
LOC: ASU 07:11 → 3N 07:11